=== PATIENT | female | born 2005 | race Caucasian/White ===

== ENCOUNTER 2025-05-14 13:10 | Inpatient (IN) ==
--- NOTE | 2025-05-14 14:40 | Emergency Department Note ---
History of Present Illness General Chief complaint: Neuro Symptoms/Deficit Stated complaint: NUMBNESS/TINGLING IN FACE, ARM, LEG Time Seen by Provider: 05/14/25 13:48 History of Present Illness Maximum Pain Intensity: 6 Patient is a 19-year-old female with past medical history significant for anxiety who presents to the emergency department at the advice of an outside urgent care facility for evaluation of neurologic symptoms. Patient states that for the last 3 weeks, she has had twitching of the left upper eyelid. She tried putting electrolyte solutions in her water without relief. There is no pain associated with it, but she feels like the left face has been numb for a few days. In last couple days she is also noticed numbness and tingling in her right arm and in her right leg. She describes it as feeling like the extremities are heavy. There is a numb tingling session that seems to originate at the right wrist and radiates into the hand/palm and up toward the elbow. She has a similar numbness in the medial right ankle that radiates into the plantar aspect of her foot and up towards her knee. She denies any symptoms in the right upper arm or leg. She feels like they are weak and that she has to concentrate harder to use them. She is right-handed. There is been no associated headache, no lightheadedness, dizziness, nausea, vomiting or neck pain. No fevers or chills. She was seen at an urgent care facility and referred to the ED for evaluation. Home Medications Medication Instructions Recorded Confirmed Type sertraline 50 mg tablet (Zoloft) 50 mg PO DAILY 04/23/24 05/14/25 History Allergies Allergy/AdvReac Type Severity Reaction Status Date / Time No Known Drug Allergies Allergy Intermediate Unverified 05/14/25 12:39 tree nut Allergy Intermediate Unverified 05/14/25 12:39 Past Med/Surg History Problem List (Updated 05/14/25 @ 18:29 by Tai Cartwright) Facial paresthesia (Acute) Weakness of right lower extremity (Acute) Weakness of right upper extremity (Acute) Multiple sclerosis Stroke-like symptoms Medical History Anxiety Surgical History No history of previous surgery Social History Smoking Status: Never smoker Preferred Language: Mohawk current occupational status: student Feels Safe at Home: Yes Review of Systems A total of 10 systems reviewed and were otherwise negative Physical Exam Vital Signs Vital Signs - 24 hr 05/14/25 13:21 Temperature 36.5 C Temperature Source Temporal Artery Scan Pulse Rate 69 Respiratory Rate 16 Respiratory Effort / Characteristics Non-Labored Spontaneous Respiratory Depth Normal Respiratory Pattern Regular Blood Pressure 122/86 Blood Pressure Mean 98 Pulse Oximetry 97 Oxygen Delivery Method Room Air Sepsis Recent Fever Within 48 Hours No Sepsis New/Unexplained Change in Mental Status No Sepsis Action Taken by Nursing No Action Required CONSTITUTIONAL: Pleasant, well-appearing 19-year-old female in no acute distress laying on the gurney. Speech is clear. HEENT: Normocephalic, atraumatic. Pupils equal, round, reactive to light and accommodation. EOMs intact without nystagmus. Intermittent fluttering of the left upper eyelid noted. Tympanic membranes intact, with normal landmarks. External canals are clear. Oral and nasopharynx are clear. Mucous membranes are moist. NECK: Supple, nontender, no lymphadenopathy. Full range of motion. HEART: Regular rate and rhythm. LUNGS: Breath sounds equal and clear to auscultation. SKIN: No lesions or rash, normal skin turgor. EXTREMITIES: No cyanosis, edema, joint tenderness or swelling. No deformity. NEUROLOGICAL: Alert and oriented x4. Cranial nerves 2 through 12 grossly intact. Gait is normal although patient does appear to be hiking the right hip. She is able to tandem walk without difficulty. She can toe and heel rise. Negative Romberg, and pronator drift. Finger to nose intact. Strength in the right upper extremity, including right shoulder, flue dust laborer strength, and elbow flexion/extension 3/5, compared to 5/5 on the left. Strength in the right lower extremity, including hip flexion, knee flexion and extension, and ankle dorsiflexion/plantarflexion 3/5 compared to 5/5 on the left. Biceps, ADLs, patellar and Achilles reflexes 2+ bilaterally. Diminished sensation to light touch over the right forearm, from the elbow distally, and the right lower leg, from the elbow distally. Course Course The patient was seen and assessed as above. External medical records are reviewed. Case reviewed with attending physician, Dr. Lemon, and ED work up agreed upon. IV lock was initiated. Laboratory studies were collected. CT scan of the head and neck was obtained. NIH stroke scale is 0. Diagnostics, as interpreted by me: Laboratory studies: No leukocytosis, anemia, electrolyte imbalance, TIFFANI or transaminitis. Inflammatory markers are not elevated. Coags are normal. TSH is indicative of a euthyroid state. Serum hCG is negative. ECG: Sinus bradycardia with sinus arrhythmia 52 bpm, no acute ischemic changes, no old EKGs available for comparison. Imaging studies: Head CT: No acute intracranial hemorrhage, shift or mass effect. Garibay-white matter differentiation is preserved. No findings to indicate acute dural sinus thrombosis or territorial infarct. Head CTA: Arteries are widely patent with no aneurysm, high-grade stenosis or proximal branch occlusion identified. Dural sinuses are patent. Neck CTA: Vessels are widely. Soft tissue structures unremarkable. All laboratory and diagnostic imaging studies were reviewed with Dr. Lemon, and discussed with the patient at length. She has documented right upper and lower extremity weakness, with associated paresthesia, and reported paresthesia of the left side of her face. Given ongoing neurosymptoms, I did recommend further inpatient care, and she was agreeable. Patient was reviewed with the [facility] hospitalist service, Dr. Mccollum, who will see the patient for further inpatient care. With patient's permission, I did discuss her ED workup with her mother by telephone, she is in route to our facility from [place]. After review of the information above and other included data, I feel the patient requires further inpatient workup. Chronic conditions affecting care: Anxiety Differential diagnosis: meningitis, sinusitis, ICH, SAH, infection, tumor, headache, sinus thrombosis, arterial dissection, demyelinating process, as well as other pathologies. Administered Medications Discontinued Medications Aspirin (Aspirin Chew 324 Mg) 324 mg PO NOW STA Stop: 05/14/25 17:47 Last Admin: 05/14/25 18:05 Dose: 324 mg Documented By: SENA Ioversol (Optiray 320 125ml) 115 ml IV ONCE ONE Stop: 05/14/25 15:25 Last Admin: 05/14/25 15:24 Dose: 115 ml Documented By: RAMYA Medical Decision Making Differential Diagnosis See ED Course. Medical Records Attestation: I reviewed the patient's medical records. Home Medications Current Medication List: was personally reviewed by me Laboratory Data Attestation: I reviewed the patient's lab results. 05/14/25 14:30 05/14/25 14:30 Lab Results 05/14/25 Range/Units 14:30 WBC 6.64 (4.8-10.8) K/ul RBC 5.50 H (4.20-5.40) M/uL Hgb 14.9 (12.0-16.0) g/dL Hct 44.5 (37.0-47.0) % MCV 80.9 (80.0-100.0) fL MCH 27.1 (25.0-34.0) pg MCHC 33.5 (32.0-36.0) g/dL RDW Std Deviation 40.7 (36.4-46.3) fL RDW Coeff of Vesta 13.8 (11.5-14.5) % Plt Count 336 (130-400) K/uL MPV 9.7 (9.4-12.4) fL Immature Gran % (Auto) 0.2 % Neut % (Auto) 55.0 % Lymph % (Auto) 35.2 % Cotton % (Auto) 6.9 % Eos % (Auto) 2.4 % Baso % (Auto) 0.3 % Neut # (Auto) 3.65 (1.40-6.50) K/uL Lymph # (Auto) 2.34 (1.20-3.40) K/uL Cotton # (Auto) 0.46 (0.11-0.59) K/uL Eos # (Auto) 0.16 (0.00-0.50) K/uL Baso # (Auto) 0.02 (0.00-0.20) K/uL Immature Gran # (Auto) 0.01 (0.01-0.20) K/uL ESR 14 (0-20) mm/hr PT 11.4 (9.0-12.0) Seconds INR 1.1 (0.9-1.1) APTT 29 (21-31) Seconds PTT Ratio 1.1 Sodium 138 (136-145) mmol/L Potassium 3.8 (3.5-5.1) mmol/L Chloride 103 (98-107) mmol/L Carbon Dioxide 28 (21-32) mmol/L Anion Gap 7 (3-11) BUN 14 (6-23) mg/dl Creatinine 0.88 (0.6-1.2) mg/dl Est Cr Clr Drug Dosing 91.9 ml/min eGFR 97.03 BUN/Creatinine Ratio 15.9 (10-20) Glucose 93 (70-99(Fasting)) mg/dl Calcium 10.0 (8.6-10.3) mg/dl Magnesium 2.2 (1.7-2.4) mg/dl Total Bilirubin 0.9 (0.2-1.0) mg/dl AST 20 (13-39) U/L ALT 14 (7-52) U/L Alkaline Phosphatase 41 (34-104) U/L C-Reactive Protein < 0.50 (0-0.5) mg/dl Total Protein 8.4 H (6.0-8.3) gm/dl Albumin 4.7 (3.4-5.0) gm/dl Globulin 3.7 (2.5-4.0) gm/dl Albumin/Globulin Ratio 1.3 (0.9-2) TSH 1.226 (0.300-4.500) uIu/ml HCG, Qual Negative (Negative) Imaging Data Attestation: I personally reviewed and interpreted this imaging study as follows: Radiologist's Impression: Head CT 05/14/25 14:12 CT SCAN OF THE BRAIN WITHOUT IV CONTRAST CLINICAL HISTORY: Left facial numbness. Right arm and leg numbness and weakness. COMPARISON STUDY: None. TECHNIQUE: Unenhanced axial CT scan of the brain was performed from the vertex to the skull base. A dose lowering technique was utilized adhering to the principles of ALARA. FINDINGS: Brain parenchyma: No acute intracranial hemorrhage, midline shift or mass effect is present. Garibay-white matter differentiation is preserved. There are no extra- axial fluid collections. There are no findings to suggest acute dural sinus thrombosis or acute territorial infarct. Ventricles, sulci, cisterns: There is no hydrocephalus. The basal cisterns are patent. Calvarium: Unremarkable. Sinuses and mastoids: The visualized paranasal sinuses are clear. The mastoid air cells are well pneumatized. Orbits: The bony orbits are grossly intact. IMPRESSION: No acute intracranial findings. ACT 112: Negative or not required by law. Electronically signed by: Jamshid Cox M.D. 05/14/2025 3:43 PM Head CTA 05/14/25 14:12 CT angio head w con CLINICAL HISTORY: 19 years-old Female with L FACIAL NUMBNESS, R ARM/LEG NUMBNESS/WEAKNESS. Acute stroke like symptoms with left facial numbness COMPARISON STUDY: Head CT same day TECHNIQUE: Following the IV administration of 150 cc of Optiray, CT angiogram of the brain was performed from the skull base to the vertex. Images are reviewed in the axial, sagittal, and coronal planes. 3-D MIPS images are created and assessed. IV contrast was administered without complication. All measurements were obtained according to NASCET criteria. A dose lowering technique was utilized adhering to the principles of ALARA. FINDINGS: CT BRAIN: Dictated separately. CT ANGIOGRAM OF THE BRAIN: The imaged bilateral internal carotid arteries are patent. The bilateral anterior and middle cerebral arteries are also patent. The vertebrobasilar system and posterior cerebral arteries are widely patent. There is no aneurysm, high-grade stenosis, or proximal branch occlusion identified. Dural sinuses appear patent. IMPRESSION: Normal exam. ACT 112: Negative or not required by law. The above report was generated using voice recognition software. It may contain grammatical, syntax or spelling errors. Electronically signed by: Romel Shields M.D. 05/14/2025 3:49 PM Neck CTA 05/14/25 14:12 CT ANGIOGRAM OF THE NECK CLINICAL HISTORY: Left facial numbness. Right arm and leg numbness. COMPARISON STUDY: No prior TECHNIQUE: Following the IV administration of 115 of Optiray 320, CT angiogram of the neck was performed from the aortic arch to the skull base. Images are reviewed in the axial, sagittal, and coronal planes. 3-D MIPS images are created and assessed. IV contrast was administered without complication. All measurements were calculated based on NASCET criteria. A dose lowering technique was utilized adhering to the principles of ALARA. CT DOSE: 930.2 mGy.cm FINDINGS: Thoracic aorta: Visualized portions of the thoracic aorta are normal in caliber. The aortic arch demonstrates standard 3-vessel anatomy. Right carotid arterial system: The right common carotid artery is widely patent, as are the right internal and external carotid arteries. Left carotid arterial system: The left common carotid artery is widely patent, as are the left internal and external carotid arteries. Vertebral arteries: Widely patent bilaterally noting left-sided dominance. Subclavian arteries: Widely patent bilaterally. Intracranial vasculature: The visualized intracranial vessels at the skull base are patent. Jugular veins: Patent bilaterally. Brain parenchyma: The visualized brain parenchyma the skull base is within normal limits. Lung apices: Partially visualized upper lobe lung parenchyma appears clear. Soft tissues: The visualized pharyngeal soft tissues are normal in appearance noting angiographic phase technique. The oropharyngeal airway appears widely patent. The salivary and thyroid glands are normal in appearance. No cervical lymphadenopathy is seen. Skeletal structures: The visualized calvarium at the skull base appears intact. The imaged cervical spine is within normal limits. Sinuses and mastoids: The visualized paranasal sinuses are clear. The mastoid air cells are well pneumatized. IMPRESSION: Unremarkable CT angiogram of the neck. ACT 112: Negative or not required by law. Electronically signed by: Rosales Lyman M.D. 05/14/2025 3:43 PM MDM Narrative See ED Course. Impression & Plan Weakness of right upper extremity, Weakness of right lower extremity, Facial paresthesia Discharge Plan Visit Data Chief Complaint: Neuro Symptoms/Deficit Stated Complaint: NUMBNESS/TINGLING IN FACE, ARM, LEG ED Provider: Kaveh Lemon ED Midlevel Provider: Tai Cartwright Discharge Problem: Weakness of right upper extremity, Weakness of right lower extremity, Facial paresthesia Patient Disposition: Admitted As Inpatient Condition: Fair Forms Stand Alone Forms: [facility] Prescriptions Prescriptions: No Action sertraline [Zoloft] 50 mg tablet 50 mg PO DAILY Referrals Referrals: PCP,NO [Primary Care Provider] -
[2025-05-14 14:48] LABS: Hematocrit (blood only) 44.5 % (37.0-47.0); Hemoglobin 14.9 g/dL (12.0-16.0); Immature Granulocytes # (auto) 0.01 K/uL (0.01-0.20); Immature Granulocytes % (auto) 0.2 %; Mean Corpuscular Hemoglobin 27.1 pg (25.0-34.0); Mean Corpuscular Volume 80.9 fL (80.0-100.0); Platelet Count 336 K/uL (130-400); RDW Standard Deviation 40.7 fL (36.4-46.3); Red Blood Count 5.50 M/uL (4.20-5.40); White Blood Count 6.64 K/ul (4.8-10.8)
[2025-05-14 14:59] LABS: Pregnancy Test, Serum Negative (Negative)
[2025-05-14 15:08] LABS: Alanine Aminotransferase 14 U/L (7-52); Albumin Globulin Ratio 1.3 (0.9-2); Albumin Level 4.7 gm/dl (3.4-5.0); Alkaline Phosphatase 41 U/L (34-104); Anion Gap 7 (3-11); Bilirubin,Total 0.9 mg/dl (0.2-1.0); Blood Urea Nitrogen 14 mg/dl (6-23); Calcium 10.0 mg/dl (8.6-10.3); Carbon Dioxide 28 mmol/L (21-32); Chloride 103 mmol/L (98-107); Creatinine Clr Calc Pharmacy 91.9 ml/min; Globulin 3.7 gm/dl (2.5-4.0); Glucose 93 mg/dl (70-99(Fasting)); Magnesium 2.2 mg/dl (1.7-2.4); Potassium 3.8 mmol/L (3.5-5.1); Sodium 138 mmol/L (136-145); Total Protein 8.4 gm/dl (6.0-8.3)
[2025-05-14 15:22] LABS: Thyroid Stimulating Hormone 1.226 uIu/ml (0.300-4.500)
[2025-05-14] MEDS: OPTIRAY 320 125ml IV ONE (15:24)
[2025-05-14 15:33] LABS: INR 1.1 (0.9-1.1); Partial Thromboplastin Time 29 Seconds (21-31); Prothrombin Time 11.4 Seconds (9.0-12.0)
--- NOTE | 2025-05-14 15:44 | CT Scan Report ---
CT ANGIOGRAM OF THE NECK CLINICAL HISTORY: Left facial numbness. Right arm and leg numbness. COMPARISON STUDY: No prior TECHNIQUE: Following the IV administration of 115 of Optiray 320, CT angiogram of the neck was perfor med from the aortic arch to the skull base. Images are reviewed in the axial, sagittal, and coronal p lanes. 3-D MIPS images are created and assessed. IV contrast was administered without complication. A ll measurements were calculated based on NASCET criteria. A dose lowering technique was utilized adh ering to the principles of ALARA. CT DOSE: 930.2 mGy.cm FINDINGS: Thoracic aorta: Visualized portions of the thoracic aorta are normal in caliber. The aortic arch demo nstrates standard 3-vessel anatomy. Right carotid arterial system: The right common carotid artery is widely patent, as are the right int ernal and external carotid arteries. Left carotid arterial system: The left common carotid artery is widely patent, as are the left international relations professor al and external carotid arteries. Vertebral arteries: Widely patent bilaterally noting left-sided dominance. Subclavian arteries: Widely patent bilaterally. Intracranial vasculature: The visualized intracranial vessels at the skull base are patent. Jugular veins: Patent bilaterally. Brain parenchyma: The visualized brain parenchyma the skull base is within normal limits. Lung apices: Partially visualized upper lobe lung parenchyma appears clear. Soft tissues: The visualized pharyngeal soft tissues are normal in appearance noting angiographic pha se technique. The oropharyngeal airway appears widely patent. The salivary and thyroid glands are nor mal in appearance. No cervical lymphadenopathy is seen. Skeletal structures: The visualized calvarium at the skull base appears intact. The imaged cervical s pine is within normal limits. Sinuses and mastoids: The visualized paranasal sinuses are clear. The mastoid air cells are well pneu matized. IMPRESSION: Unremarkable CT angiogram of the neck. ACT 112: Negative or not required by law. Electronically signed by: Rosales Lyman M.D. 05/14/2025 3:43 PM
--- NOTE | 2025-05-14 15:44 | CT Scan Report ---
CT SCAN OF THE BRAIN WITHOUT IV CONTRAST CLINICAL HISTORY: Left facial numbness. Right arm and leg numbness and weakness. COMPARISON STUDY: None. TECHNIQUE: Unenhanced axial CT scan of the brain was performed from the vertex to the skull base. A dose lowering technique was utilized adhering to the principles of ALARA. FINDINGS: Brain parenchyma: No acute intracranial hemorrhage, midline shift or mass effect is present. Garibay-whi te matter differentiation is preserved. There are no extra-axial fluid collections. There are no find ings to suggest acute dural sinus thrombosis or acute territorial infarct. Ventricles, sulci, cisterns: There is no hydrocephalus. The basal cisterns are patent. Calvarium: Unremarkable. Sinuses and mastoids: The visualized paranasal sinuses are clear. The mastoid air cells are well pneu matized. Orbits: The bony orbits are grossly intact. IMPRESSION: No acute intracranial findings. ACT 112: Negative or not required by law. Electronically signed by: Jamshid Cox M.D. 05/14/2025 3:43 PM
--- NOTE | 2025-05-14 15:51 | CT Scan Report ---
CT angio head w con CLINICAL HISTORY: 19 years-old Female with L FACIAL NUMBNESS, R ARM/LEG NUMBNESS/WEAKNESS. Acute s troke like symptoms with left facial numbness COMPARISON STUDY: Head CT same day TECHNIQUE: Following the IV administration of 150 cc of Optiray, CT angiogram of the brain was perfor med from the skull base to the vertex. Images are reviewed in the axial, sagittal, and coronal planes . 3-D MIPS images are created and assessed. IV contrast was administered without complication. All me asurements were obtained according to NASCET criteria. A dose lowering technique was utilized adherin g to the principles of ALARA. FINDINGS: CT BRAIN: Dictated separately. CT ANGIOGRAM OF THE BRAIN: The imaged bilateral internal carotid arteries are patent. The bilateral anterior and middle cerebral arteries are also patent. The vertebrobasilar system and posterior cerebral arteries are widely noguera nt. There is no aneurysm, high-grade stenosis, or proximal branch occlusion identified. Dural sinuses appear patent. IMPRESSION: Normal exam. ACT 112: Negative or not required by law. The above report was generated using voice recognition software. It may contain grammatical, syntax o r spelling errors. Electronically signed by: Romel Shields M.D. 05/14/2025 3:49 PM
[2025-05-14] MEDS: ASPIRIN CHEW 324 MG PO STA (18:05)
--- NOTE | 2025-05-14 18:26 | Neurology Consultation ---
Date of Consultation May 14, 2025 Assessment & Plan (1) Stroke-like symptoms: (2) Multiple sclerosis: Telehealth Consultation Telehealth Information Telehealth Information: I performed this visit using a real-time telehealth connection between my location and the patients originating location ([facility]). After connecting through interactive tele-video, patient was identified by name and date of and/or wristband check.Patient (or authorized healthcare parts sales representative) was informed that this was a telemedicine visit and it was being conducted confidentially over secure lines. My office door was closed and no one else was present in the room with me.Patient (or authorized healthcare parts sales representative) provided consent to proceed with the visit, expressed an understanding of privacy and security of the telemedicine visit, and gave permission to have a hospital parts sales representative in the room in order to assist with the visit and to conduct portions of the visit, as needed. I informed the patient (or authorized healthcare parts sales representative) that I reviewed their record and presented the opportunity for them to ask any questions regarding the visit today. The patient agreed to participate. History of Present Illness Requesting Physician: Dr. Jose J Mccollum Attending Physician: Dr. Jose J Mccollum Allergies Allergy/AdvReac Type Severity Reaction Status Date / Time No Known Drug Allergies Allergy Intermediate Unverified 05/14/25 12:39 tree nut Allergy Intermediate Unverified 05/14/25 12:39 Home Medications Medication Instructions Recorded Confirmed Type sertraline 50 mg tablet (Zoloft) 50 mg PO DAILY 04/23/24 05/14/25 History Patient History Medical History Anxiety Surgical History No history of previous surgery Social History Smoking Status: Never smoker Preferred Language: Slovak current occupational status: student Feels Safe at Home: Yes Review of Systems Constitutional symptoms, eyes, ears, nose, throat, cardiovascular, respiratory, gastrointestinal, genitourinary, musculoskeletal, endocrine, hematologic, and psychiatric review of systems are negative about the chief complaint, except as detailed in the present illness. Results & Data Vital Signs (Past 12 Hours) Vital Signs Temp Pulse Resp BP Pulse Ox O2 Del Method 05/14/25 13:21 36.5 C 69 16 122/86 97 Room Air Laboratory Results Laboratory Results - last 24 hr 05/14/25 14:30 WBC 6.64 RBC 5.50 H Hgb 14.9 Hct 44.5 MCV 80.9 MCH 27.1 MCHC 33.5 RDW Std Deviation 40.7 RDW Coeff of Vesta 13.8 Plt Count 336 MPV 9.7 Immature Gran % (Auto) 0.2 Neut % (Auto) 55.0 Lymph % (Auto) 35.2 [place] % (Auto) 6.9 Eos % (Auto) 2.4 Baso % (Auto) 0.3 Neut # (Auto) 3.65 Lymph # (Auto) 2.34 [place] # (Auto) 0.46 Eos # (Auto) 0.16 Baso # (Auto) 0.02 Immature Gran # (Auto) 0.01 ESR 14 PT 11.4 INR 1.1 APTT 29 PTT Ratio 1.1 Sodium 138 Potassium 3.8 Chloride 103 Carbon Dioxide 28 Anion Gap 7 BUN 14 Creatinine 0.88 Est Cr Clr Drug Dosing 91.9 eGFR 97.03 BUN/Creatinine Ratio 15.9 Glucose 93 Calcium 10.0 Magnesium 2.2 Total Bilirubin 0.9 AST 20 ALT 14 Alkaline Phosphatase 41 C-Reactive Protein < 0.50 Total Protein 8.4 H Albumin 4.7 Globulin 3.7 Albumin/Globulin Ratio 1.3 TSH 1.226 HCG, Qual Negative Diagnostic Findings Head CT 05/14/25 14:12 CT SCAN OF THE BRAIN WITHOUT IV CONTRAST CLINICAL HISTORY: Left facial numbness. Right arm and leg numbness and weakness. COMPARISON STUDY: None. TECHNIQUE: Unenhanced axial CT scan of the brain was performed from the vertex to the skull base. A dose lowering technique was utilized adhering to the principles of ALARA. FINDINGS: Brain parenchyma: No acute intracranial hemorrhage, midline shift or mass effect is present. Garibay-white matter differentiation is preserved. There are no extra- axial fluid collections. There are no findings to suggest acute dural sinus thrombosis or acute territorial infarct. Ventricles, sulci, cisterns: There is no hydrocephalus. The basal cisterns are patent. Calvarium: Unremarkable. Sinuses and mastoids: The visualized paranasal sinuses are clear. The mastoid air cells are well pneumatized. Orbits: The bony orbits are grossly intact. IMPRESSION: No acute intracranial findings. ACT 112: Negative or not required by law. Electronically signed by: Jamshid Cox M.D. 05/14/2025 3:43 PM Head CTA 05/14/25 14:12 CT angio head w con CLINICAL HISTORY: 19 years-old Female with L FACIAL NUMBNESS, R ARM/LEG NUMBNESS/WEAKNESS. Acute stroke like symptoms with left facial numbness COMPARISON STUDY: Head CT same day TECHNIQUE: Following the IV administration of 150 cc of Optiray, CT angiogram of the brain was performed from the skull base to the vertex. Images are reviewed in the axial, sagittal, and coronal planes. 3-D MIPS images are created and assessed. IV contrast was administered without complication. All measurements were obtained according to NASCET criteria. A dose lowering technique was utilized adhering to the principles of ALARA. FINDINGS: CT BRAIN: Dictated separately. CT ANGIOGRAM OF THE BRAIN: The imaged bilateral internal carotid arteries are patent. The bilateral anterior and middle cerebral arteries are also patent. The vertebrobasilar system and posterior cerebral arteries are widely patent. There is no aneurysm, high-grade stenosis, or proximal branch occlusion identified. Dural sinuses appear patent. IMPRESSION: Normal exam. ACT 112: Negative or not required by law. The above report was generated using voice recognition software. It may contain grammatical, syntax or spelling errors. Electronically signed by: Romel Shields M.D. 05/14/2025 3:49 PM Neck CTA 05/14/25 14:12 CT ANGIOGRAM OF THE NECK CLINICAL HISTORY: Left facial numbness. Right arm and leg numbness. COMPARISON STUDY: No prior TECHNIQUE: Following the IV administration of 115 of Optiray 320, CT angiogram of the neck was performed from the aortic arch to the skull base. Images are reviewed in the axial, sagittal, and coronal planes. 3-D MIPS images are created and assessed. IV contrast was administered without complication. All measurements were calculated based on NASCET criteria. A dose lowering technique was utilized adhering to the principles of ALARA. CT DOSE: 930.2 mGy.cm FINDINGS: Thoracic aorta: Visualized portions of the thoracic aorta are normal in caliber. The aortic arch demonstrates standard 3-vessel anatomy. Right carotid arterial system: The right common carotid artery is widely patent, as are the right internal and external carotid arteries. Left carotid arterial system: The left common carotid artery is widely patent, as are the left internal and external carotid arteries. Vertebral arteries: Widely patent bilaterally noting left-sided dominance. Subclavian arteries: Widely patent bilaterally. Intracranial vasculature: The visualized intracranial vessels at the skull base are patent. Jugular veins: Patent bilaterally. Brain parenchyma: The visualized brain parenchyma the skull base is within normal limits. Lung apices: Partially visualized upper lobe lung parenchyma appears clear. Soft tissues: The visualized pharyngeal soft tissues are normal in appearance noting angiographic phase technique. The oropharyngeal airway appears widely patent. The salivary and thyroid glands are normal in appearance. No cervical lymphadenopathy is seen. Skeletal structures: The visualized calvarium at the skull base appears intact. The imaged cervical spine is within normal limits. Sinuses and mastoids: The visualized paranasal sinuses are clear. The mastoid air cells are well pneumatized. IMPRESSION: Unremarkable CT angiogram of the neck. ACT 112: Negative or not required by law. Electronically signed by: Rosales Lyman M.D. 05/14/2025 3:43 PM Medications Administered Home Medications Medication Instructions Recorded Confirmed Last Taken sertraline 50 mg tablet (Zoloft) 50 mg PO DAILY 04/23/24 05/14/25 Unknown
--- NOTE | 2025-05-14 19:03 | Communication Note ---
Date of Service: May 14, 2025 Phone consultation: Consulting provider: Dr. Jose J Mccollum 19-year-old female with medical history significant for anxiety presented to the emergency department on 05/14/2025 because of multiple neurological symptoms and deficits. The patient first went to the urgent care facility and was sent to the hospital for further evaluation. She had twitching of the left upper eyelid for the last 3 weeks. She tried putting electrolyte solution in her water but there was no relief. She also developed left facial numbness which lasted for a few days and since the last few days she also noted numbness and tingling in her right arm and right leg. She also feels her right side of the body is heavy. The patient also describes a tingling and paresthesias which starts from the right wrist and radiates to her hand and palm. She also has at times numbness of her right ankle and foot. She denies any focal weakness but feel weak and has to concentrate to use her arm and leg on the right side in the emergency room, head CT was done which was negative for acute intracranial pathology. CT angiogram of the head and neck did not show hemodynamically significant stenosis. EKG showed sinus bradycardia with sinus arrhythmia 52 bpm. Labs were essentially unremarkable unremarkable and serum hCG was negative. There was initially a concern about stroke so she was given full dose aspirin. MS seems high on the differential since she has multiple neurological symptoms which occurred over time and also her age. Neurology was consulted regarding further recommendations. Assessment and plan: 19-year-old with multiple neurological symptoms over. Of time raises concern more about multiple sclerosis. Acute CVA is lower on the differential. Agree with full dose aspirin for secondary stroke prevention Consider giving 1 dose of Solu-Medrol 1 g IV now since symptoms seem concerning for MS. Will proceed with MRI of the brain with and without contrast and MRI of the cervical spine with and without contrast for further evaluation to see if there is any presence of actve demyelinating lesions. Check hypercoagulable/thrombosis panel since history of strokelike symptoms at early age Need Lumbar puncture and please send CSF for: CSF Cell count & differential, Gram stain, Culture & Sensitivity, Protein, Glucose, Cytology (Non-computer game designer cytology) Infectious: If CSF has increased WBCs, please order: Meningitis/encephalitis panel, VDRL, West Nile Virus PCR, EBV PCR CSF: Oligoclonal Banding with SPEP, JOSE level, Aquaporin 4-Ab (blood/CSF), IgG, IgM, and IgG index. Serum: Myelin Oligodendrocyte Glycoprotein (MOG)-Ab (Miscellaneous order to [facility]), c-ANCA, p-ANCA, STEPHIE panel PT/OT/speech Continue home medications Continue telemetry to monitor for arrhythmias Monitor blood pressure and blood glucose DVT prophylaxis Continue medical management per primary team Further recommendations depend on the results of the testing. Formal neurology consult in a.m. Plan discussed in detail with the admitting hospitalist Dr. Mccollum Time Spent (min) 20 minutes Comment Total time includes peer to peer discussion , chart review, , note preparation *Disclaimer: This note was generated using [employer] dictation software. Any typographical errors are unintentional and attributed to errors in voice recognition. If there are any areas of the note that do not make sense, please contact me for clarification.
[2025-05-14] MEDS: GADOBUTROL 65ML VIAL IV ONE (19:24)
[2025-05-14] MEDS: methylPREDNISolone 1,000 MG in NSS 250 ML IV ONE (19:42)
--- NOTE | 2025-05-14 19:43 | Magnetic Resonance Report ---
Technique: Multiple T1 and T2-weighted magnetic resonance images were obtained of the brain without gadolinium contrast Findings: There is no sign of acute or old infarction with normal-appearing diffusion weighted images. No definite focus of demyelination is seen. No definite mass lesion is seen on this noncontrast study. There is no intracranial hemorrhage or other fluid collection. No midline shift or other form of herniation is seen. There is no hydrocephalus. Normal flow-voids are seen within the arteries of the [id number]. The orbits and paranasal sinuses appear normal. The mastoid air cells appear clear. Impression: Unremarkable noncontrast MRI of the brain Electronically signed by Jayjay Borden 05-14-2025 7:42 PM
--- NOTE | 2025-05-14 19:47 | History & Physical Report ---
Date of Service May 14, 2025 Assessment & Plan (1) Facial paresthesia: (2) Weakness of right lower extremity: (3) Weakness of right upper extremity: (4) Stroke-like symptoms: (5) Anxiety: Plan # Subacute polyneuropathy # Left facial, right upper extremity and right lower extremity decrease in sensation #Concern for acute MS - Subacute, progressive over about 3 weeks, positive Lhermitte sign - Admit PCU, close stroke protocol, consult to neurology. Discussed with Dr. Eli of [facility] teleneurology, symptoms very consistent with acute MS - Stat MRI brain and cervical spine with and without contrast - 324 mg aspirin, 1 g loading dose of Solu-Medrol - Seizure and fall precautions #Anxiety depression - Continue sertraline #Skin lesions - Several months ago, healed, will review for review this morning - Monitor for recurrence #FEN - Regular diet, NS at 80 cc/h through the night #CODE STATUS - Full code per her wishes History of Present Illness Chief Complaint: Right side numbness Primary Care Provider: NO PCP 19-year-old female generally healthy presents to the emergency department after a 3-1-week history of progressive neurologic symptoms. Patient states she has no prior history of similar. Generally healthy takes sertraline for depression/anxiety. About 3 weeks ago noticed some twitching of her left eyelid which has been persistent and almost now constant. Shortly after the twitching started she had some numbness that she noticed around the left side of her forehead and the left side of her face surrounding the eye. Symptoms would come and go but never completely resolved. Over the last week she first noticed some numbness and decreased sensation throughout the right arm. A few days later she noticed some slight weakness and decreased sensation of the right leg. She was somewhat concerned the symptoms are worsening. She went to class today she felt very unsteady one of her friends thought she looked as though she was going to pass out so she advised her to come to urgent care. Urgent care referred her to the emergency department for evaluation. Initial evaluation in the emergency department showed largely normal electrolytes. Normal CT imaging. Initial stroke workup was negative. She was referred for admission for ongoing evaluation, neurology consultation and further treatment and evaluation. Allergies Allergy/AdvReac Type Severity Reaction Status Date / Time No Known Drug Allergies Allergy Intermediate Unverified 05/14/25 12:39 tree nut Allergy Intermediate Unverified 05/14/25 12:39 Home Medications Medication Instructions Recorded Confirmed Type sertraline 50 mg tablet (Zoloft) 50 mg PO DAILY 04/23/24 05/14/25 History Past Med/Surg History Problem List (Updated 05/14/25 @ 18:29 by Tai Cartwright) Facial paresthesia (Acute) Weakness of right lower extremity (Acute) Weakness of right upper extremity (Acute) Multiple sclerosis Stroke-like symptoms Medical History Anxiety Surgical History No history of previous surgery Social History Smoking Status: Never smoker Preferred Language: Nicaraguan current occupational status: student Feels Safe at Home: Yes Review of Systems Review of Systems: Aside from that noted in HPI she only has a few skin lesions that she noticed on the inside of her thigh several months ago but those have largely resolved only 1 she thinks may have scarred. Otherwise 12pt review of system negative Neurologic: Patient does report a lightninglike pain in the right upper side of her spine and neck over the same timeframe Physical Exam Physical Exam: General: Alert and oriented, no apparent distress HEENT: Normocephalic, atraumatic, sclera clear and anicteric Neck: Trachea midline, no adenopathy Cardiovascular: Regular rate and rhythm, no murmurs rubs or gallops Respiratory: Clear to auscultation bilaterally Abdomen: Nontender nondistended Skin: No rash or discoloration on limited examination Neurologic: Noted intermittent spastic twitching of the left upper eyelid, EOMI with no aferrent or eferrent defects, subjective decrease in sensation area of the forehead above the left eye to just below the left eye extending to the zygomatic arch, no ptosis or facial droop, cranial nerves II through XII otherwise grossly intact. Subjective decrease in sensation of the entire right upper extremity and right lower extremity. Strength 5/5 to the upper extremities. Reflexes 2+/4 at the patella bilaterally, Babinski was negative. There was very slight heel drift in the right lower extremity, no pronator dri ft. No dysmetria or dysarthria noted. Results & Data Results & Data Vital Signs (Past 12 Hours) Vital Signs Temp Pulse Resp BP Pulse Ox O2 Del Method 05/14/25 13:21 36.5 C 69 16 122/86 97 Room Air Laboratory Results 05/14/25 14:30 WBC 6.64 RBC 5.50 H Hgb 14.9 Hct 44.5 MCV 80.9 MCH 27.1 MCHC 33.5 RDW Std Deviation 40.7 RDW Coeff of Vesta 13.8 Plt Count 336 MPV 9.7 Immature Gran % (Auto) 0.2 Neut % (Auto) 55.0 Lymph % (Auto) 35.2 [place] % (Auto) 6.9 Eos % (Auto) 2.4 Baso % (Auto) 0.3 Neut # (Auto) 3.65 Lymph # (Auto) 2.34 [place] # (Auto) 0.46 Eos # (Auto) 0.16 Baso # (Auto) 0.02 Immature Gran # (Auto) 0.01 ESR 14 PT 11.4 INR 1.1 APTT 29 PTT Ratio 1.1 Sodium 138 Potassium 3.8 Chloride 103 Carbon Dioxide 28 Anion Gap 7 BUN 14 Creatinine 0.88 Est Cr Clr Drug Dosing 91.9 eGFR 97.03 BUN/Creatinine Ratio 15.9 Glucose 93 Calcium 10.0 Magnesium 2.2 Total Bilirubin 0.9 AST 20 ALT 14 Alkaline Phosphatase 41 C-Reactive Protein < 0.50 Total Protein 8.4 H Albumin 4.7 Globulin 3.7 Albumin/Globulin Ratio 1.3 TSH 1.226 HCG, Qual Negative Diagnostic Findings Head CT 05/14/25 14:12 CT SCAN OF THE BRAIN WITHOUT IV CONTRAST CLINICAL HISTORY: Left facial numbness. Right arm and leg numbness and weakness. COMPARISON STUDY: None. TECHNIQUE: Unenhanced axial CT scan of the brain was performed from the vertex to the skull base. A dose lowering technique was utilized adhering to the principles of ALARA. FINDINGS: Brain parenchyma: No acute intracranial hemorrhage, midline shift or mass effect is present. Garibay-white matter differentiation is preserved. There are no extra- axial fluid collections. There are no findings to suggest acute dural sinus thrombosis or acute territorial infarct. Ventricles, sulci, cisterns: There is no hydrocephalus. The basal cisterns are patent. Calvarium: Unremarkable. Sinuses and mastoids: The visualized paranasal sinuses are clear. The mastoid air cells are well pneumatized. Orbits: The bony orbits are grossly intact. IMPRESSION: No acute intracranial findings. ACT 112: Negative or not required by law. Electronically signed by: Jamshid Cox M.D. 05/14/2025 3:43 PM Head CTA 05/14/25 14:12 CT angio head w con CLINICAL HISTORY: 19 years-old Female with L FACIAL NUMBNESS, R ARM/LEG NUMBNESS/WEAKNESS. Acute stroke like symptoms with left facial numbness COMPARISON STUDY: Head CT same day TECHNIQUE: Following the IV administration of 150 cc of Optiray, CT angiogram of the brain was performed from the skull base to the vertex. Images are reviewed in the axial, sagittal, and coronal planes. 3-D MIPS images are created and assessed. IV contrast was administered without complication. All measurements were obtained according to NASCET criteria. A dose lowering technique was utilized adhering to the principles of ALARA. FINDINGS: CT BRAIN: Dictated separately. CT ANGIOGRAM OF THE BRAIN: The imaged bilateral internal carotid arteries are patent. The bilateral anterior and middle cerebral arteries are also patent. The vertebrobasilar system and posterior cerebral arteries are widely patent. There is no aneurysm, high-grade stenosis, or proximal branch occlusion identified. Dural sinuses appear patent. IMPRESSION: Normal exam. ACT 112: Negative or not required by law. The above report was generated using voice recognition software. It may contain grammatical, syntax or spelling errors. Electronically signed by: Romel Shields M.D. 05/14/2025 3:49 PM Neck CTA 05/14/25 14:12 CT ANGIOGRAM OF THE NECK CLINICAL HISTORY: Left facial numbness. Right arm and leg numbness. COMPARISON STUDY: No prior TECHNIQUE: Following the IV administration of 115 of Optiray 320, CT angiogram o f the neck was performed from the aortic arch to the skull base. Images are reviewed in the axial, sagittal, and coronal planes. 3-D MIPS images are created and assessed. IV contrast was administered without complication. All measurements were calculated based on NASCET criteria. A dose lowering technique was utilized adhering to the principles of ALARA. CT DOSE: 930.2 mGy.cm FINDINGS: Thoracic aorta: Visualized portions of the thoracic aorta are normal in caliber. The aortic arch demonstrates standard 3-vessel anatomy. Right carotid arterial system: The right common carotid artery is widely patent, as are the right internal and external carotid arteries. Left carotid arterial system: The left common carotid artery is widely patent, as are the left internal and external carotid arteries. Vertebral arteries: Widely patent bilaterally noting left-sided dominance. Subclavian arteries: Widely patent bilaterally. Intracranial vasculature: The visualized intracranial vessels at the skull base are patent. Jugular veins: Patent bilaterally. Brain parenchyma: The visualized brain parenchyma the skull base is within normal limits. Lung apices: Partially visualized upper lobe lung parenchyma appears clear. Soft tissues: The visualized pharyngeal soft tissues are normal in appearance noting angiographic phase technique. The oropharyngeal airway appears widely patent. The salivary and thyroid glands are normal in appearance. No cervical lymphadenopathy is seen. Skeletal structures: The visualized calvarium at the skull base appears intact. The imaged cervical spine is within normal limits. Sinuses and mastoids: The visualized paranasal sinuses are clear. The mastoid air cells are well pneumatized. IMPRESSION: Unremarkable CT angiogram of the neck. ACT 112: Negative or not required by law. Electronically signed by: Rosales Lyman M.D. 05/14/2025 3:43 PM Code Status & VTE Plan VTE Prophylaxis Plan VTE Prophylaxis will be ordered: Yes PG Care Time/CCT Total # of Minutes Spent Total Time Spent with Patient: Total time spent is greater than 50% in coordination of care (as documented) at patient's floor/unit and/or counseling patient: Coding Level of Care Code 98685 INT INP/OBS CARE 3/75MIN Diagnoses Facial paresthesia R20.2 Weakness of right lower extremity R29.898 Weakness of right upper extremity R29.898 Stroke-like symptoms R29.90 Anxiety F41.9
--- NOTE | 2025-05-14 20:02 | Magnetic Resonance Report ---
MR cervical spine with and without contrast History: Facial numbness Comparison: No prior Technique: Sagittal T1-weighted, sagittal T2-weighted, sagittal STIR, sagittal diffusion weighted, axial T2-weighted, and axial T2* gradient echo images of the cervical spine were obtained without intravenous contrast. T1-weighted postcontrast images performed. Findings: The cervical vertebrae are normally aligned. There is no disc height narrowing at any level. There is normal signal within and normal contour of the cervical spinal cord. The findings on a level by level basis are as follows: C2-3: No spinal canal or neural foraminal stenosis. C3-4: No spinal canal or neural foraminal stenosis C4-5: No spinal canal or neural foraminal stenosis. C5-6: No spinal canal or neural foraminal stenosis. C6-7: No spinal canal or neural foraminal stenosis. C7-T1: No spinal canal or neural foraminal stenosis. No abnormality of the paraspinous soft tissues. No abnormal enhancement or mass. Impression: Normal MRI of the cervical spine with and without IV contrast Electronically signed by Hong Kimball 05-14-2025 8:02 PM
[2025-05-14] MEDS ORDERED: PHARMACIST DISCHARGE MED REC CONSULT PRN (20:21)
[2025-05-14] MEDS ORDERED: ONDANSETRON INJ 2 MG/ML 2 ML VIAL IV PRN (20:21)
[2025-05-14] MEDS: SODIUM CHLORIDE 0.9% 1,000 ML IV SCH (20:28)
[2025-05-14] MEDS: SERTRALINE HCL 50 MG TABLET PO SCH (22:15)
[2025-05-14 23:32] LABS: Appearance Urine Clear (Clear); Glucose Urine UA Negative (Negative)
[2025-05-15 06:25] LABS: Hematocrit (blood only) 39.3 % (37.0-47.0); Hemoglobin 13.3 g/dL (12.0-16.0); Immature Granulocytes # (auto) 0.04 K/uL (0.01-0.20); Immature Granulocytes % (auto) 0.4 %; Mean Corpuscular Hemoglobin 27.1 pg (25.0-34.0); Mean Corpuscular Volume 80.2 fL (80.0-100.0); Platelet Count 318 K/uL (130-400); RDW Standard Deviation 39.7 fL (36.4-46.3); Red Blood Count 4.90 M/uL (4.20-5.40); White Blood Count 9.60 K/ul (4.8-10.8)
[2025-05-15 06:58] LABS: Anion Gap 10.0 (3-11); Blood Urea Nitrogen 12.0 mg/dl (6-23); Calcium 9.3 mg/dl (8.6-10.3); Carbon Dioxide 24.0 mmol/L (21-32); Chloride 106.0 mmol/L (98-107); Cholesterol 205.0 mg/dl (0-200); Creatinine Clr Calc Pharmacy 98.6 ml/min; Glucose 147.0 mg/dl (70-99(Fasting)); HDL Cholesterol 75.0 mg/dl; Potassium 4.2 mmol/L (3.5-5.1); Sodium 140.0 mmol/L (136-145); Triglycerides 37.0 mg/dl (0-150)
--- NOTE | 2025-05-15 08:07 | Neurology Consultation ---
Date of Consultation May 15, 2025 Assessment & Plan (1) Multiple sclerosis: (2) Stroke-like symptoms: Plan 19-year-old female presented with 3-day history of right eyelid twitching with numbness on the left side of the face around the left eye, progressive weakness of the right upper and lower extremity associated with numbness and difficulty with ambulation. Patient initially presented to the urgent care and was advised to come to the emergency room for further evaluation. In the emergency room, she was given full dose aspirin for secondary stroke prevention and also 1 g of Solu-Medrol IV with concern about multiple sclerosis Acute CVA has been ruled out with negative MRI of the brain and TIA has been ruled out since symptoms are more than 24 hours. MRI of the brain and MRI of the cervical spine did not show any presence of demyelinating lesions active or inactive. However, her MS can occur with negative imaging but rare. Will image the rest of the spine Head CT reviewed which was negative for acute intracranial pathology CT angiogram of the head and neck did not show dynamically significant stenosis EKG showed sinus bradycardia Consider MRI of the thoracic and cervical spine with and without contrast Will also proceed with lumbar puncture In the meantime, continue IV Solu-Medrol 1 g every 24 hours for 2 more days. Today is day 2 of 3 Regular insulin sliding scale for steroid-induced hyperglycemia PPI for steroid-induced GERD Neurochecks every 4 hours Need Lumbar puncture and please send CSF for: CSF Cell count & differential, Gram stain, Culture & Sensitivity, Protein, Glucose, Cytology (Non-birdcage assembler cytology) Infectious: If CSF has increased WBCs, please order: Meningitis/encephalitis panel, VDRL, West Nile Virus PCR, EBV PCR CSF: Oligoclonal Banding with SPEP, JOSE level, Aquaporin 4-Ab (blood/CSF), IgG, IgM, and IgG index. Serum: Myelin Oligodendrocyte Glycoprotein (MOG)-Ab (Miscellaneous order to [facility]), c-ANCA, p-ANCA, STEPHIE panel PT/OT/speech Continue home medications Continue telemetry to monitor for arrhythmias Monitor blood pressure and blood glucose DVT prophylaxis Continue medical management per primary team The results of the imaging were discussed in detail with the patient. Patient was made aware that multiple sclerosis without positive imaging is rare but can occur. The importance of lumbar puncture and CSF fluid analysis was also discussed with the patient. She was also made aware of the results take several days that she has to establish care with a neurologist to go over the results and perform further testing if the results were inconclusive Plan discussed in detail with the patient, and the nursing staff Plan also communicated with the primary attending Dr. Mccollum Spent time 60 minutes Comment Total time includes patient contact, chart review, counseling, note preparation *Disclaimer: This note was generated using [email or web address] dictation software. Any typographical errors are unintentional and attributed to errors in voice recognition. If there are any areas of the note that do not make sense, please contact me for clarification. Telehealth Consultation Telehealth Information Telehealth Information: I performed this visit using a real-time telehealth connection between my location and the patients originating location ([facility]). After connecting through interactive tele-video, patient was identified by name and date of and/or wristband check.Patient (or authorized healthcare door to door sales representative) was informed that this was a telemedicine visit and it was being conducted confidentially over secure lines. My office door was closed and no one else was present in the room with me.Patient (or authorized healthcare door to door sales representative) provided consent to proceed with the visit, expressed an understanding of privacy and security of the telemedicine visit, and gave permission to have a hospital door to door sales representative in the room in order to assist with the visit and to conduct portions of the visit, as needed. I informed the patient (or authorized healthcare door to door sales representative) that I reviewed their record and presented the opportunity for them to ask any questions regarding the visit today. The patient agreed to participate. History of Present Illness Reason for Consultation: Right sided weakness and numbness,left eye twitching, and ambulatory dysfunction R/O Multiple Sclerosis Requesting Physician: Jose J Mccollum MD Attending Physician: Jose J Mccollum MD History of Present Illness 19-year-old female who is a sophomore at [employer] presented to the emergency department because of 3-week history of progressive neurological symptoms. Patient does have a history significant for depression and anxiety and is on sertraline. The patient denies any head trauma or tick bite. 3 weeks ago she experienced twitching in her left eyelid which was persistent and then she noted numbness on the left side of her face mainly around the eye. The symptoms did not resolve but then she also started noticing decreased appetite associated with numbness in the right upper and lower extremity in addition to right sided weakness and difficulty with ambulation. The symptoms progressed since the last 3 weeks. On 05/14/2025, the patient friends noted that she was unsteady and advised her to come to the urgent care for further evaluation. She denies any family history of MS or history of similar episodes in the past. She went to the urgent care and was advised to come to the emergency room for further evaluation. In the emergency room, vitals were stable. Head CT was done which was negative for acute intracranial pathology. CT angiogram of the head and neck did not show hemodynamically significant stenosis. EKG showed sinus bradycardia with sinus arrhythmia. She was admitted for workup for MS. MRI of the brain was done on 05/14/2025 in the emergency room with and without contrast which did not show any acute intracranial pathology or evidence of demyelinating lesions. Cervical spine MRI was also unremarkable and did not show any evidence of demyelinating lesions. The patient symptoms are still p ersistent at the time of the rounds and complain of twitching of the left eyelid associated with numbness on the left side of the face mainly around the eye and also weakness and numbness of the right upper and lower extremity. The patient has history of abnormal bowel movements which alternates between diarrhea and constipation about 8 times a day for which she was scheduled for further testing for irritable bowel syndrome in June 2025. The patient denies any nausea, vomiting, change headache, or problems with speech or swallowing Allergies Allergy/AdvReac Type Severity Reaction Status Date / Time No Known Drug Allergies Allergy Intermediate Unverified 05/14/25 12:39 tree nut Allergy Intermediate Unverified 05/14/25 12:39 Home Medications Medication Instructions Recorded Confirmed Type sertraline 50 mg tablet (Zoloft) 50 mg PO DAILY 04/23/24 05/14/25 History Patient History Medical History Anxiety Surgical History No history of previous surgery Social History Smoking Status: Unknown if ever smoked Hx Alcohol Use: Yes Hx Substance Use: No Preferred Language: Polish Communication Ability: Effective General Supervisor Required: No Beliefs That Will Affect Care: None Current Living Situation: Other Current Living Situation Comment: roommates at [employer] current occupational status: student Other Information That Helps Us Care for You: No Feels Safe at Home: Yes Safety Concerns: Feels Safe At This Time Assistive Devices: Contacts Review of Systems Constitutional symptoms, eyes, ears, nose, throat, cardiovascular, respiratory, gastrointestinal, genitourinary, musculoskeletal, endocrine, hematologic, and psychiatric review of systems are negative about the chief complaint, except as detailed in the present illness. Physical Exam Neuro Exam Mentation and Language Alert and oriented to person, place, time and situation. There is no apparent deficit of comprehensionfluent speech without word-finding difficulty or dysarthria. The affect appears appropriate. Cranial Nerves CN 11-X11 intact. Except cranial nerve Vdiminished sensation to touch in the V1, V2, distribution on the left Motor There is appropriate bulk throughout. Tone is normal. There is no resting tremor or other extraneous movements. Strength is graded 5/5 throughout the upper and lower extremity on the left. Right hemiparesis 4/5 Sensation Intact to light touch on the left. Diminished sensation to touch in the right upper and lower extremity Muscle Stretch Reflexes Coordination There is no dysmetria with finger nose finger Gait and Station Deferred due to patient safety reasons. Results & Data Vital Signs (Past 12 Hours) Vital Signs Temp Pulse Pulse Resp BP BP Pulse Ox 05/15/25 07:07 36.4 C L 44 L 20 96/60 L 98 05/15/25 02:54 36.5 C 53 L 16 105/57 L 96 05/14/25 23:49 51 L 05/14/25 22:57 36.6 C 64 16 106/64 97 05/14/25 21:05 63 05/14/25 20:29 69 16 128/89 98 05/14/25 20:20 36.6 C 57 L 16 109/68 97 O2 Del Method 05/15/25 07:07 Room Air 05/15/25 02:54 Room Air 05/14/25 23:49 05/14/25 22:57 Room Air 05/14/25 21:05 05/14/25 20:29 Room Air 05/14/25 20:20 Room Air Laboratory Results Laboratory Results - last 24 hr 05/14/25 05/14/25 05/15/25 14:30 22:57 05:45 WBC 6.64 9.60 RBC 5.50 H 4.90 Hgb 14.9 13.3 Hct 44.5 39.3 MCV 80.9 80.2 MCH 27.1 27.1 MCHC 33.5 33.8 RDW Std Deviation 40.7 39.7 RDW Coeff of Vesta 13.8 13.5 Plt Count 336 318 MPV 9.7 9.9 Immature Gran % (Auto) 0.2 0.4 Neut % (Auto) 55.0 86.5 Lymph % (Auto) 35.2 12.6 [place] % (Auto) 6.9 0.4 Eos % (Auto) 2.4 0.0 Baso % (Auto) 0.3 0.1 Neut # (Auto) 3.65 8.30 H Lymph # (Auto) 2.34 1.21 [place] # (Auto) 0.46 0.04 L Eos # (Auto) 0.16 0.00 Baso # (Auto) 0.02 0.01 Immature Gran # (Auto) 0.01 0.04 ESR 14 PT 11.4 INR 1.1 APTT 29 PTT Ratio 1.1 Sodium 138 140 Potassium 3.8 4.2 Chloride 103 106 Carbon Dioxide 28 24 Anion Gap 7 10 BUN 14 12 Creatinine 0.88 0.82 Est Cr Clr Drug Dosing 91.9 98.6 eGFR 97.03 105.61 BUN/Creatinine Ratio 15.9 14.6 Glucose 93 147 H Estimat Average Glucose Pending Hemoglobin A1c Pending Calcium 10.0 9.3 Magnesium 2.2 Total Bilirubin 0.9 AST 20 ALT 14 Alkaline Phosphatase 41 C-Reactive Protein < 0.50 Total Protein 8.4 H Albumin 4.7 Globulin 3.7 Albumin/Globulin Ratio 1.3 Triglycerides 37 Cholesterol 205 H LDL Cholesterol, Calc 123 VLDL Cholesterol, Calc 7 HDL Cholesterol 75 Cholesterol/HDL Ratio 2.7 TSH 1.226 HCG, Qual Negative Urine Color Yellow Urine Appearance Clear Urine pH 8.5 H Ur Specific [place] 1.030 Urine Protein Negative Urine Glucose (UA) Negative Urine Ketones Negative Urine Blood Negative Urine Nitrite Negative Urine Bilirubin Negative Urine Urobilinogen Negative Ur Leukocyte Esterase Negative Urine Comment Diagnostic Findings Head CT 05/14/25 14:12 CT SCAN OF THE BRAIN WITHOUT IV CONTRAST CLINICAL HISTORY: Left facial numbness. Right arm and leg numbness and weakness. COMPARISON STUDY: None. TECHNIQUE: Unenhanced axial CT scan of the brain was performed from the vertex to the skull base. A dose lowering technique was utilized adhering to the principles of ALARA. FINDINGS: Brain parenchyma: No acute intracranial hemorrhage, midline shift or mass effect is present. Garibay-white matter differentiation is preserved. There are no extra- axial fluid collections. There are no findings to suggest acute dural sinus thrombosis or acute territorial infarct. Ventricles, sulci, cisterns: There is no hydrocephalus. The basal cisterns are patent. Calvarium: Unremarkable. Sinuses and mastoids: The visualized paranasal sinuses are clear. The mastoid air cells are well pneumatized. Orbits: The bony orbits are grossly intact. IMPRESSION: No acute intracranial findings. ACT 112: Negative or not required by law. Electronically signed by: Jamshdi Cox M.D. 05/14/2025 3:43 PM Head CTA 05/14/25 14:12 CT angio head w con CLINICAL HISTORY: 19 years-old Female with L FACIAL NUMBNESS, R ARM/LEG NUMBNESS/WEAKNESS. Acute stroke like symptoms with left facial numbness COMPARISON STUDY: Head CT same day TECHNIQUE: Following the IV administration of 150 cc of Optiray, CT angiogram of the brain was performed from the skull base to the vertex. Images are reviewed in the axial, sagittal, and coronal planes. 3-D MIPS images are created and assessed. IV contrast was administered without complication. All measurements were obtained according to NASCET criteria. A dose lowering technique was utilized adhering to the principles of ALARA. FINDINGS: CT BRAIN: Dictated separately. CT ANGIOGRAM OF THE BRAIN: The imaged bilateral internal carotid arteries are patent. The bilateral anterior and middle cerebral arteries are also patent. The vertebrobasilar system and posterior cerebral arteries are widely patent. There is no aneurysm, high-grade stenosis, or proximal branch occlusion identified. Dural sinuses appear patent. IMPRESSION: Normal exam. ACT 112: Negative or not required by law. The above report was generated using voice recognition software. It may contain grammatical, syntax or spelling errors. Electronically signed by: Romel Shields M.D. 05/14/2025 3:49 PM Neck CTA 05/14/25 14:12 CT ANGIOGRAM OF THE NECK CLINICAL HISTORY: Left facial numbness. Right arm and leg numbness. COMPARISON STUDY: No prior TECHNIQUE: Following the IV administration of 115 of Optiray 320, CT angiogram of the neck was performed from the aortic arch to the skull base. Images are reviewed in the axial, sagittal, and coronal planes. 3-D MIPS images are created and assessed. IV contrast was administered without complication. All measurements were calculated based on NASCET criteria. A dose lowering technique was utilized adhering to the principles of ALARA. CT DOSE: 930.2 mGy.cm FINDINGS: Thoracic aorta: Visualized portions of the thoracic aorta are normal in caliber. The aortic arch demonstrates standard 3-vessel anatomy. Right carotid arterial system: The right common carotid artery is widely patent, as are the right internal and external carotid arteries. Left carotid arterial system: The left common carotid artery is widely patent, as are the left internal and external carotid arteries. Vertebral arteries: Widely patent bilaterally noting left-sided dominance. Subclavian arteries: Widely patent bilaterally. Intracranial vasculature: The visualized intracranial vessels at the skull base are patent. Jugular veins: Patent bilaterally. Brain parenchyma: The visualized brain parenchyma the skull base is within normal limits. Lung apices: Partially visualized upper lobe lung parenchyma appears clear. Soft tissues: The visualized pharyngeal soft tissues are normal in appearance noting angiographic phase technique. The oropharyngeal airway appears widely patent. The salivary and thyroid glands are normal in appearance. No cervical lymphadenopathy is seen. Skeletal structures: The visualized calvarium at the skull base appears intact. The imaged cervical spine is within normal limits. Sinuses and mastoids: The visualized paranasal sinuses are clear. The mastoid air cells are well pneumatized. IMPRESSION: Unremarkable CT angiogram of the neck. ACT 112: Negative or not required by law. Electronically signed by: Rosales Lyman M.D. 05/14/2025 3:43 PM Brain MRI 05/14/25 17:51 Technique: Multiple T1 and T2-weighted magnetic resonance images were obtained of the brain without gadolinium contrast Findings: There is no sign of acute or old infarction with normal-appearing diffusion weighted images. No definite focus of demyelination is seen. No definite mass lesion is seen on this noncontrast study. There is no intracranial hemorrhage or other fluid collection. No midline shift or other form of herniation is seen. There is no hydrocephalus. Normal flow-voids are seen within the arteries of the [id number]. The orbits and paranasal sinuses appear normal. The mastoid air cells appear clear. Impression: Unremarkable noncontrast MRI of the brain Electronically signed by Jayjay Borden 05-14-2025 7:42 PM Cervical Spine MRI 05/14/25 17:51 MR cervical spine with and without contrast History: Facial numbness Comparison: No prior Technique: Sagittal T1-weighted, sagittal T2-weighted, sagittal STIR, sagittal diffusion weighted, axial T2-weighted, and axial T2* gradient echo images of the cervical spine were obtained without intravenous contrast. T1-weighted postcontrast images performed. Findings: The cervical vertebrae are normally aligned. There is no disc height narrowing at any level. There is normal signal within and normal contour of the cervical spinal cord. The findings on a level by level basis are as follows: C2-3: No spinal canal or neural foraminal stenosis. C3-4: No spinal canal or neural foraminal stenosis C4-5: No spinal canal or neural foraminal stenosis. C5-6: No spinal canal or neural foraminal stenosis. C6-7: No spinal canal or neural foraminal stenosis. C7-T1: No spinal canal or neural foraminal stenosis. No abnormality of the paraspinous soft tissues. No abnormal enhancement or mass. Impression: Normal MRI of the cervical spine with and without IV contrast Electronically signed by Hong Kimball 05-14-2025 8:02 PM Medications Administered Home Medications Medication Instructions Recorded Confirmed Last Taken sertraline 50 mg tablet (Zoloft) 50 mg PO DAILY 04/23/24 05/14/25 Unknown Active Medications Generic Name Dose Route Start Last Admin Trade Name Freq PRN Reason Stop Dose Admin Sodium Chloride 1,000 mls @ 80 mls/hr 05/14/25 20:30 05/14/25 20:28 Nss IV 05/17/25 20:29 80 mls/hr .[id number] CATHY Administration Sertraline HCl 50 mg 05/14/25 21:15 05/14/25 22:15 Sertraline Hcl 50 Mg Tablet PO 06/13/25 21:14 50 mg 1700 CATHY Administration
[2025-05-15 08:08] LABS: Hemoglobin A1C 5.4 % (4.5-5.6)
--- NOTE | 2025-05-15 08:46 | Hospitalist Progress Note ---
"Date of Service May 15, 2025 Assessment & Plan (1) Facial paresthesia: (2) Weakness of right lower extremity: (3) Weakness of right upper extremity: (4) Stroke-like symptoms: (5) Anxiety: Plan Pt is a 19 y/o F w/ PMHx significant for travel to [facility] in December where she hiked in the [place] and went swimming. # Subacute polyneuropathy # Left facial, right upper extremity and right lower extremity decrease in sensation | L arm repetitive involuntary movements #Concern for acute MS -Head CT & CTA 05/14: Without acute intracranial findings -Neck CTA 05/14: Unremarkable for acute findings -Brain MRI 05/14: Unremarkable, no abnormal lesions or masses seen within the brain -Cervical Spine MRI 05/14: Unremarkable: no abnormalities of the paraspinous soft tissues seen, no abnormal enhancement or masses -Lumbar and Thoracic Spine MRI 05/15: Without abnormalities, no abnormal enhancement see, no disc herniation or central canal stenosis present -Repeat Head CT 05/15 without any acute or abnormal findings. -Subacute, progressive over about 3 weeks, positive Lhermitte sign -Neurology Consulted: Recommended Lumbar and Thoracic MRI and Lumbar Puncture Additionally recommended pt receive Ativan with new onset of L arm repetitive involuntary movement with concern for seizure-like activity in addition to STAT Head CT Also recommended transfer to tertiary care facility, this was declined by [facility], pt will be re-evaluated in AM -Infectious Disease Consulted: to see patient in AM, agreed with LP testing -Stat MRI brain and cervical spine with and without contrast -1000mg Solumedrol -Seizure and fall precautions -Neuro check Q4H #Anxiety depression - Continue sertraline #Skin lesions - Several months ago, healed -Monitor for recurrence #FEN -Regular diet, NS at 80 cc/h through the night VTE Proph: SCDs Dispo: PCU; closely followed by Neuro Admission and Anticipated Discharge Date Admission Date: May 14, 2025 Subjective Pt was laying in bed today in NAD, mother at bedside. Pt notes that she feels slightly better today than she did yesterday. She notes that this AM she had a Lt sided H/A and notes that she recently took some Tylenol to help. She notes that she continues to feel weak. Pt states that she discussed LP with neuro and understands why it is needed and agreeable to the procedure. Pt otherwise denies cough, congestion, shortness of breath, chest pain, palpitations, appetite changes, abdominal pain or discomfort, nausea vomiting and diarrhea. Pt was additionally seen later on with my Attending, Dr Jose J Mccollum, present at bedside. Pt noted that she developed and Lt sided arm-movement that was difficult to control. this was then discussed with neurology. Patient was then given 1 g of Ativan followed by an additional gram of Ativan 15 minutes later to help with uncontrollable movements. Patient was then taken down for a stat CT at the recommendation of the neurologist. Neurologist additionally recommended transfer to tertiary care facility, upon further discussion with [facility] they did not feel it was appropriate to transfer patient at this time. Patient will remain 1 more night and be reevaluated for tertiary care center needs in the morning. Telemetry: Sinus 40s-60s overnight into AM Review of Systems Review of Systems: All systems reviewed & are unremarkable except as noted in Subjective Physical Exam Physical Exam: General: Pt is a 19 y/o WD/WN F in NAD in bed. VS: reviewed, unremarkable Skin: Warm and dry; no lesions or ulcerations Respiratory: CTA bilat, no adventitious sounds noted. Chest expansion is full and symmetrical Cardio: RRR no murmurs Abdomen: Round, normoactive BS x4, nontender to palpation MSK: FROM of extremities, no deformities Extremities: no edema; Pt with notable R-sided weakness, with a strength of +3 Neuro: A&Ox4, cooperative; Tic-like movement present on L side of body Results & Data Results & Data Vital Signs (Past 12 Hours) Vital Signs Temp Pulse Pulse Resp BP Pulse Ox O2 Del Method 05/15/25 07:07 97.5 F L 44 L 20 96/60 L 98 Room Air 05/15/25 02:54 97.7 F 53 L 16 105/57 L 96 Room Air 05/14/25 23:49 51 L 05/14/25 22:57 97.9 F 64 16 106/64 97 Room Air 05/14/25 21:05 63 Laboratory Results Reviewed: CBC, CMP, UA, TSH, HCG, Lipid Panel Diagnostic Findings Reviewed: CT head, thoracic spine MRI, lumbar spine MRI, lumbar puncture PG Care Time/CCT Total # of Minutes Spent Total Time Spent with Patient: Total time spent is greater than 50% in coordination of care (as documented) at patient's floor/unit and/or counseling patient: A total of 150 minutes was spent between direct patient care, review of imaging + labs + chart review, coordination of patient care, and documentation. Coding Level of Care Code 04932 SUB INP/OBS CARE 3/50MIN Diagnoses Facial paresthesia R20.2 Weakness of right lower extremity R29.898 Weakness of right upper extremity R29.898 Stroke-like symptoms R29.90 Anxiety F41.9"
[2025-05-15] MEDS ORDERED: SERTRALINE HCL 50 MG TABLET PO SCH (09:00)
[2025-05-15] MEDS: ACETAMINOPHEN 325 MG TAB PO PRN (11:01)
[2025-05-15] MEDS: GADOBUTROL 65ML VIAL IV ONE (12:54)
--- NOTE | 2025-05-15 12:55 | Infectious Disease Consult ---
Date of Consultation May 15, 2025 Consultation Information Consultation was provided via telemedicine using two-way real-time interactive telecommunication between the patient and the telemedicine provider. For the duration of the visit, the provider was performing the assessment from a different facility than the patient. This includesuse of bluetooth stethoscope forauscultationperformed by the telepresenter that the telemedicine provider can hear if described in the physical exam. Planting Material Carrier contact information: Please call [facility] [phone]. (Phone Number For Physician Use Only) After establishing a telemedicine visit, patient was: Patient was verified with two unique identifiers, Patient/authorized rep acknowledged consent and understanding and Gave permission to continue telehealth session Time Spent with Patient: Initial => 55 min History of Present Illness Reason for Consultation: Neurologic symptoms Attending Physician: Jose J Mccollum MD Allergies Allergy/AdvReac Type Severity Reaction Status Date / Time No Known Drug Allergies Allergy Intermediate Unverified 05/14/25 12:39 tree nut Allergy Intermediate Unverified 05/14/25 12:39 Home Medications Medication Instructions Recorded Confirmed Type sertraline 50 mg tablet (Zoloft) 50 mg PO DAILY 04/23/24 05/14/25 History Patient History Medical History Anxiety Surgical History No history of previous surgery Social History Smoking Status: Unknown if ever smoked Hx Alcohol Use: Yes Hx Substance Use: No Preferred Language: Dutch Communication Ability: Effective Dress Fitter Required: No Beliefs That Will Affect Care: None Current Living Situation: Other Current Living Situation Comment: roommates at [facility] current occupational status: student Other Information That Helps Us Care for You: No Feels Safe at Home: Yes Safety Concerns: Feels Safe At This Time Assistive Devices: None Results & Data Vital Signs (Past 12 Hours) Vital Signs Temp Pulse Pulse Resp BP Pulse Ox O2 Del Method 05/15/25 11:34 36.5 C 58 L 21 105/63 99 Room Air 05/15/25 08:00 43 L 05/15/25 07:07 36.4 C L 44 L 20 96/60 L 98 Room Air 05/15/25 02:54 36.5 C 53 L 16 105/57 L 96 Room Air
--- NOTE | 2025-05-15 13:22 | Magnetic Resonance Report ---
MRI OF THE LUMBAR SPINE WITH AND WITHOUT CONTRAST CLINICAL HISTORY: Extremity weakness and numbness. Evaluate for multiple sclerosis. COMPARISON STUDY: No previous studies for comparison. TECHNIQUE: Utilizing a 1.5 Edith magnet and dedicated coil, multiplanar, multiecho imaging of the conor ar spine was performed before and after uneventful IV administration of 5.6 mL of Gadavist. FINDINGS: For purposes of numbering on this exam, the L5-S1 disc space is assigned to axial image 23 of 25. Ali gnment of the lumbar spine is anatomic. Vertebral body heights are maintained. There is no marrow pilar ma or marrow replacement. No intracanalicular mass or fluid collection is present. No signal abnormal ity is identified within visualized portions the lower cord. There is no abnormal enhancement within the lumbar canal. L1-2: The central canal and neural foramen are patent. L2-3: The central canal and neural foramen are patent. L3-4: The central canal and neural foramen are patent. L4-5: The central canal and neural foramen are patent. L5-S1: The central canal and neural foramen are patent. IMPRESSION: Unremarkable MRI of the lumbar spine. ACT 112: Negative or not required by law. Electronically signed by: Jamshid Cox M.D. 05/15/2025 1:20 PM
--- NOTE | 2025-05-15 14:19 | Fluoroscopy Report ---
LUMBAR PUNCTURE CLINICAL HISTORY: New onset weakness; paresthesias PROCEDURE: Procedure and risks were explained. Informed consent was obtained. A final timeout was com pleted. The patient was placed prone on the fluoroscopic exam table. The lower lumbar region was prep ped and draped in sterile fashion. 1% lidocaine was utilized for skin anesthesia. Utilizing fluoroscopic guidance, a 22-gauge Sprotte spinal needle was advanced into the intrathecal s pace at the L3-4 disc space level. Fluoroscopic spot images were obtained. Opening pressure was measu red at 26.5 cm H20. Approximately 10 mL of clear CSF was removed and sent to the lab for analysis. Th e needle was removed and Band-Aid applied. The patient tolerated the procedure well. Vital signs will be monitored postprocedure. Fluoroscopy time 5 seconds. Study dosed is 2.86 mGy. IMPRESSION: Lumbar puncture as above. Performed, dictated, and signed by Ricki Armendariz PA-C; to be co-signed by Dr. Jamshid Cox. Electronically signed by: Jamshid Cox M.D. 05/15/2025 2:31 PM
--- NOTE | 2025-05-15 14:46 | Infectious Disease Consult ---
Date of Consultation May 15, 2025 Assessment & Plan (1) Facial paresthesia: (2) Weakness of right lower extremity: (3) Weakness of right upper extremity: Plan Problems: #L sided facial numbness #RUE and RLE numbness, weakness #Elevated opening pressure Micro: 05/15 CSF cx: pending Abx: None 19 yo F with history of depression/anxiety who presented on 05/14 for evaluation of neurologic symptoms. Pt reports that she has had twitching of the L upper eyelid for the last 3 weeks. L side of her forehead and L side of her face around her eye has felt numb for a few days. Symptoms would come and go but did not fully resolve. In the last week, also noticed numbness in her R arm, and a few days later, slight weakness and decreased sensation in her R leg. She feels as if her extremities are heavy. On presentation, pt was afebrile, VSS. Labs showed unremarkable CBC and CMP, normal ESR, UA negative. CT head, CTA head/neck normal. Neurology was concerned for multiple sclerosis, recommended starting Solumedrol, and lumbar puncture. MRI brain and entirel spine unremarkable. On exam, neurology noted diminished sensation to touch in V1, V2 distribution on the L, R hemiparesis 4/5, diminished sensation to touch in R upper and lower extremities. LP performed 05/15, showing opening pressure 26.5, CSF WBC 1, protein 32.1, glucose 106, meningitis/encephalitis PCR panel negative. Unable to see patient by video today as she was in MRI when telepresenter was available. Per my discussion with primary team, pt has not had overt fevers, but reported perhaps some sweats. She traveled to [facility] and [facility] in late December, and was reportedly hiking through the jungle and went scuba diving. Per neurology note, pt denies tick bite. Discussion: With normal CSF WBC, infections such as bacterial/viral, syphilis, Crypto seem less likely. Recommendations: - Ordered HIV screen, Lyme screen - Follow-up CSF culture/gram stain, however bacterial/fungal infection unlikely given normal CSF WBC count Will continue to follow Consultation Information This patient recommendation is based on a telemedicine consult request which was completed asynchronously through chart review and information provided by the primary physician. The patient was not seen or examined today. The evaluation is consultative in nature and all patient care and treatment decisions can either be accepted or rejected by the patient's primary hospital-based treating physician using their own independent medical judgment for their patient. Lo[facility] Worker Head contact information: Please call [facility] . (Phone Number For Physician Use Only) Time Spent Reviewing Chart: 31+ minutes History of Present Illness Reason for Consultation: Neurologic symptoms, evaluate for infectious etiology Attending Physician: Jose J Mccollum MD History of Present Illness 19 yo F with history of depression/anxiety who presented on 05/14 for evaluation of neurologic symptoms. Pt reports that she has had twitching of the L upper eyelid for the last 3 weeks. L side of her forehead and L side of her face around her eye has felt numb for a few days. Symptoms would come and go but did not fully resolve. In the last week, also noticed numbness in her R arm, and a few days later, slight weakness and decreased sensation in her R leg. She feels as if her extremities are heavy. On presentation, pt was afebrile, VSS. Labs showed unremarkable CBC and CMP, normal ESR, UA negative. CT head, CTA head/neck normal. Neurology was concerned for multiple sclerosis, recommended starting Solumedrol, and lumbar puncture. MRI brain and entirel spine unremarkable. On exam, neurology noted diminished sensation to touch in V1, V2 distribution on the L, R hemiparesis 4/5, diminished sensation to touch in R upper and lower extremities. LP performed 05/15, showing opening pressure 26.5, CSF WBC 1, protein 32.1, glucose 106, meningitis/encephalitis PCR panel negative. Unable to see patient by video today as she was in MRI when telepresenter was available. Per my discussion with primary team, pt has not had overt fevers, but reported perhaps some sweats. She traveled to [facility] and [facility] in late December, and was reportedly hiking through the jungle and went scuba diving. Per neurology note, pt denies tick bite. Allergies Allergy/AdvReac Type Severity Reaction Status Date / Time No Known Drug Allergies Allergy Intermediate Unverified 05/14/25 12:39 tree nut Allergy Intermediate Unverified 05/14/25 12:39 Home Medications Medication Instructions Recorded Confirmed Type sertraline 50 mg tablet (Zoloft) 50 mg PO DAILY 04/23/24 05/14/25 History Patient History Medical History Anxiety Surgical History No history of previous surgery Social History Smoking Status: Unknown if ever smoked Hx Alcohol Use: Yes Hx Substance Use: No Preferred Language: Azeri Communication Ability: Effective Tobacco Dipper Required: No Beliefs That Will Affect Care: None Current Living Situation: Other Current Living Situation Comment: roommates at [facility] current occupational status: student Other Information That Helps Us Care for You: No Feels Safe at Home: Yes Safety Concerns: Feels Safe At This Time Assistive Devices: None Results & Data Vital Signs (Past 12 Hours) Vital Signs Temp Pulse Pulse Resp BP Pulse Ox O2 Del Method 05/15/25 11:34 36.5 C 58 L 21 105/63 99 Room Air 05/15/25 08:00 43 L 05/15/25 07:07 36.4 C L 44 L 20 96/60 L 98 Room Air 05/15/25 02:54 36.5 C 53 L 16 105/57 L 96 Room Air Laboratory Results Short CBC 05/14/25 05/15/25 Range/Units 14:30 05:45 WBC 6.64 9.60 (4.8-10.8) K/ul Hgb 14.9 13.3 (12.0-16.0) g/dL Hct 44.5 39.3 (37.0-47.0) % Plt Count 336 318 (130-400) K/uL BMP 05/14/25 05/15/25 14:30 05:45 Sodium 138 140 Potassium 3.8 4.2 Chloride 103 106 Carbon Dioxide 28 24 BUN 14 12 Creatinine 0.88 0.82 Glucose 93 147 H Calcium 10.0 9.3 Liver Function 05/14/25 Range/Units 14:30 Total Bilirubin 0.9 (0.2-1.0) mg/dl AST 20 (13-39) U/L ALT 14 (7-52) U/L Alkaline Phosphatase 41 (34-104) U/L Albumin 4.7 (3.4-5.0) gm/dl Urine 05/14/25 Range/Units 22:57 Urine Color Yellow Urine Appearance Clear (Clear) Urine pH 8.5 H (4.5-7.5) Ur Specific [place] 1.030 (1.000-1.030) Urine Protein Negative (Negative) Urine Glucose (UA) Negative (Negative) Diagnostic Findings Head CT 05/14/25 14:12 CT SCAN OF THE BRAIN WITHOUT IV CONTRAST CLINICAL HISTORY: Left facial numbness. Right arm and leg numbness and weakness. COMPARISON STUDY: None. TECHNIQUE: Unenhanced axial CT scan of the brain was performed from the vertex to the skull base. A dose lowering technique was utilized adhering to the principles of ALARA. FINDINGS: Brain parenchyma: No acute intracranial hemorrhage, midline shift or mass effect is present. Garibay-white matter differentiation is preserved. There are no extra- axial fluid collections. There are no findings to suggest acute dural sinus thrombosis or acute territorial infarct. Ventricles, sulci, cisterns: There is no hydrocephalus. The basal cisterns are patent. Calvarium: Unremarkable. Sinuses and mastoids: The visualized paranasal sinuses are clear. The mastoid air cells are well pneumatized. Orbits: The bony orbits are grossly intact. IMPRESSION: No acute intracranial findings. ACT 112: Negative or not required by law. Electronically signed by: Jamshid Cox M.D. 05/14/2025 3:43 PM Head CTA 05/14/25 14:12 CT angio head w con CLINICAL HISTORY: 19 years-old Female with L FACIAL NUMBNESS, R ARM/LEG NUMBNESS/WEAKNESS. Acute stroke like symptoms with left facial numbness COMPARISON STUDY: Head CT same day TECHNIQUE: Following the IV administration of 150 cc of Optiray, CT angiogram of the brain was performed from the skull base to the vertex. Images are reviewed in the axial, sagittal, and coronal planes. 3-D MIPS images are created and assessed. IV contrast was administered without complication. All measurements were obtained according to NASCET criteria. A dose lowering technique was utilized adhering to the principles of ALARA. FINDINGS: CT BRAIN: Dictated separately. CT ANGIOGRAM OF THE BRAIN: The imaged bilateral internal carotid arteries are patent. The bilateral anterior and middle cerebral arteries are also patent. The vertebrobasilar system and posterior cerebral arteries are widely patent. There is no aneurysm, high-grade stenosis, or proximal branch occlusion identified. Dural sinuses appear patent. IMPRESSION: Normal exam. ACT 112: Negative or not required by law. The above report was generated using voice recognition software. It may contain grammatical, syntax or spelling errors. Electronically signed by: Romel Shields M.D. 05/14/2025 3:49 PM Neck CTA 05/14/25 14:12 CT ANGIOGRAM OF THE NECK CLINICAL HISTORY: Left facial numbness. Right arm and leg numbness. COMPARISON STUDY: No prior TECHNIQUE: Following the IV administration of 115 of Optiray 320, CT angiogram of the neck was performed from the aortic arch to the skull base. Images are reviewed in the axial, sagittal, and coronal planes. 3-D MIPS images are created and assessed. IV contrast was administered without complication. All measurements were calculated based on NASCET criteria. A dose lowering technique was utilized adhering to the principles of ALARA. CT DOSE: 930.2 mGy.cm FINDINGS: Thoracic aorta: Visualized portions of the thoracic aorta are normal in caliber. The aortic arch demonstrates standard 3-vessel anatomy. Right carotid arterial system: The right common carotid artery is widely patent, as are the right internal and external carotid arteries. Left carotid arterial system: The left common carotid artery is widely patent, as are the left internal and external carotid arteries. Vertebral arteries: Widely patent bilaterally noting left-sided dominance. Subclavian arteries: Widely patent bilaterally. Intracranial vasculature: The visualized intracranial vessels at the skull base are patent. Jugular veins: Patent bilaterally. Brain parenchyma: The visualized brain parenchyma the skull base is within normal limits. Lung apices: Partially visualized upper lobe lung parenchyma appears clear. Soft tissues: The visualized pharyngeal soft tissues are normal in appearance noting angiographic phase technique. The oropharyngeal airway appears widely patent. The salivary and thyroid glands are normal in appearance. No cervical lymphadenopathy is seen. Skeletal structures: The visualized calvarium at the skull base appears intact. The imaged cervical spine is within normal limits. Sinuses and mastoids: The visualized paranasal sinuses are clear. The mastoid air cells are well pneumatized. IMPRESSION: Unremarkable CT angiogram of the neck. ACT 112: Negative or not required by law. Electronically signed by: Rosales Lyman M.D. 05/14/2025 3:43 PM Brain MRI 05/14/25 17:51 Technique: Multiple T1 and T2-weighted magnetic resonance images were obtained of the brain without gadolinium contrast Findings: There is no sign of acute or old infarction with normal-appearing diffusion weighted images. No definite focus of demyelination is seen. No definite mass lesion is seen on this noncontrast study. There is no intracranial hemorrhage or other fluid collection. No midline shift or other form of herniation is seen. There is no hydrocephalus. Normal flow-voids are seen within the arteries of the [id number]. The orbits and paranasal sinuses appear normal. The mastoid air cells appear clear. Impression: Unremarkable noncontrast MRI of the brain Electronically signed by Jayjay Borden 05-14-2025 7:42 PM Cervical Spine MRI 05/14/25 17:51 MR cervical spine with and without contrast History: Facial numbness Comparison: No prior Technique: Sagittal T1-weighted, sagittal T2-weighted, sagittal STIR, sagittal diffusion weighted, axial T2-weighted, and axial T2* gradient echo images of the cervical spine were obtained without intravenous contrast. T1-weighted postcontrast images performed. Findings: The cervical vertebrae are normally aligned. There is no disc height narrowing at any level. There is normal signal within and normal contour of the cervical spinal cord. The findings on a level by level basis are as follows: C2-3: No spinal canal or neural foraminal stenosis. C3-4: No spinal canal or neural foraminal stenosis C4-5: No spinal canal or neural foraminal stenosis. C5-6: No spinal canal or neural foraminal stenosis. C6-7: No spinal canal or neural foraminal stenosis. C7-T1: No spinal canal or neural foraminal stenosis. No abnormality of the paraspinous soft tissues. No abnormal enhancement or mass. Impression: Normal MRI of the cervical spine with and without IV contrast Electronically signed by Hong Kimball 05-14-2025 8:02 PM Lumbar Spine MRI 05/15/25 11:42 MRI OF THE LUMBAR SPINE WITH AND WITHOUT CONTRAST CLINICAL HISTORY: Extremity weakness and numbness. Evaluate for multiple sclerosis. COMPARISON STUDY: No previous studies for comparison. TECHNIQUE: Utilizing a 1.5 Edith magnet and dedicated coil, multiplanar, multiecho imaging of the lumbar spine was performed before and after uneventful IV administration of 5.6 mL of Gadavist. FINDINGS: For purposes of numbering on this exam, the L5-S1 disc space is assigned to axial image 23 of 25. Alignment of the lumbar spine is anatomic. Vertebral body heights are maintained. There is no marrow edema or marrow replacement. No intracanalicular mass or fluid collection is present. No signal abnormality is identified within visualized portions the lower cord. There is no abnormal enhancement within the lumbar canal. L1-2: The central canal and neural foramen are patent. L2-3: The central canal and neural foramen are patent. L3-4: The central canal and neural foramen are patent. L4-5: The central canal and neural foramen are patent. L5-S1: The central canal and neural foramen are patent. IMPRESSION: Unremarkable MRI of the lumbar spine. ACT 112: Negative or not required by law. Electronically signed by: aJmshid Cox M.D. 05/15/2025 1:20 PM Lumbar Puncture 05/15/25 12:06 LUMBAR PUNCTURE CLINICAL HISTORY: New onset weakness; paresthesias PROCEDURE: Procedure and risks were explained. Informed consent was obtained. A final timeout was completed. The patient was placed prone on the fluoroscopic exam table. The lower lumbar region was prepped and draped in sterile fashion. 1% lidocaine was utilized for skin anesthesia. Utilizing fluoroscopic guidance, a 22-gauge Sprotte spinal needle was advanced into the intrathecal space at the L3-4 disc space level. Fluoroscopic spot images were obtained. Opening pressure was measured at 26.5 cm H20. Approximately 10 mL of clear CSF was removed and sent to the lab for analysis. The needle was removed and Band-Aid applied. The patient tolerated the procedure well. Vital signs will be monitored postprocedure. Fluoroscopy time 5 seconds. Study dosed is 2.86 mGy. IMPRESSION: Lumbar puncture as above. Performed, dictated, and signed by Ricki Armendariz PA-C; to be co-signed by Dr. Jamshid Cox. Electronically signed by: Jamshid Cox M.D. 05/15/2025 2:31 PM Medications Administered Current Inpatient Medications Acetaminophen (Acetaminophen 325 Mg Tab) 650 mg PO Q4H PRN PRN Reason: Pain or Fever Stop: 06/13/25 20:20 Last Admin: 05/15/25 11:01 Dose: 650 mg Acetazolamide (Acetazolamide 250 Mg Tab) 250 mg PO BID CATHY Stop: 06/14/25 20:59 Sodium Chloride (Nss) 1,000 mls @ 80 mls/hr IV .[id number] CATHY Stop: 05/17/25 20:29 Last Admin: 05/15/25 09:20 Dose: 80 mls/hr Magnesium Hydroxide (Magnesium Hydroxide Susp 30 Ml Udc) 30 ml PO Q12H PRN PRN Reason: Constipation Stop: 06/13/25 20:20 Ondansetron HCl (Ondansetron Inj 2 Mg/Ml 2 Ml Vial) 4 mg IV Q6H PRN PRN Reason: Nausea Stop: 06/13/25 20:20 Pantoprazole Sodium (Pantoprazole 40 Mg Tab) 40 mg PO BID [facility] Stop: 06/14/25 20:59 Sertraline HCl (Sertraline Hcl 50 Mg Tablet) 50 mg PO 1700 [facility] Stop: 06/13/25 21:14 Last Admin: 05/14/25 22:15 Dose: 50 mg
[2025-05-15 14:48] LABS: CSF Count Tube # 3; CSF Xanthrochromic No xanthochromia; Red Blood Cell CSF Manual 1 (0); White Blood Cell CSF Manual 1 (0-5)
[2025-05-15] MEDS: FAMOTIDINE 10 MG TABLET PO ONE (15:05)
[2025-05-15 15:18] LABS: Glucose 137 mg/dl (70-99(Fasting))
--- NOTE | 2025-05-15 15:26 | Magnetic Resonance Report ---
MRI OF THE THORACIC SPINE COMBO CLINICAL HISTORY: Right arm and leg weakness/numbness. COMPARISON STUDY: No priors. TECHNIQUE: MRI of the thoracic spine was performed utilizing various T1 and T2-weighted sequences in the axial and sagittal planes. Contrast-enhanced sequences are acquired following the IV administrati on of 5.6 cc of gadavist. FINDINGS: Vertebral body height and alignment are maintained throughout the thoracic spine. Normal ma rrow signal intensity is preserved throughout the visualized bony structures. No destructive bony les ion is seen. The spinous processes appear intact. The intervertebral discs are normal in height and s ignal intensity. There is no disc herniation or central canal stenosis. No significant neural foramin al stenosis is seen throughout the thoracic region. The thoracic spinal cord is normal in morphology and signal intensity. The conus medullaris terminates at the level of L1. No abnormal postcontrast en hancement is seen. Slit-like prominence of the central canal of the spinal cord is incidentally noted in the upper thoracic region. The paraspinous soft tissues are within normal limits. No enhancing ma ss lesion is identified. No pleural effusion is seen. The lung parenchyma is grossly unremarkable but not well-evaluated by MRI. The visualized posterior ribs are normal as imaged. IMPRESSION: 1. There is no disc herniation, central canal stenosis, or neural foraminal narrowing seen throughout the thoracic spine. 2. The thoracic spinal cord is normal in morphology and signal intensity with no abnormal postcontras t enhancement. 3. No destructive bony process is seen. Dictated: 05/15/2025 1:13 PM Transcribed: 05/15/2025 1:31 PM Gee [id number] Electronically signed by: Rosales Lyman M.D. 05/15/2025 3:25 PM
[2025-05-15 15:46] LABS: Cryptococcus neoformans/ga PCR Not Detected (NotDetected); Escherichia coli K1 PCR Not Detected (NotDetected); Haemophilius influenzae PCR Not Detected (NotDetected); Herpes Simplex Virus 1 PCR Not Detected (NotDetected); Herpes Simplex Virus 2 PCR Not Detected (NotDetected); Human Herpes Virus 6 PCR Not Detected (NotDetected); Human Parechovirus PCR Not Detected (NotDetected); Listeria monocytogenes PCR Not Detected (NotDetected); Neisseria meningitidis PCR Not Detected (NotDetected); Streptococcus agalactiae PCR Not Detected (NotDetected); Streptococcus pneumoniae PCR Not Detected (NotDetected)
[2025-05-15] MEDS ORDERED: LORazepam Inj 1 MG in SYRINGE 0.5 ML IV STA (18:35)
[2025-05-15] MEDS: LORazepam Inj 2 MG in SYRINGE 1 ML IV STA (19:05)
--- NOTE | 2025-05-15 19:28 | CT Scan Report ---
Clinical History: Altered mental status. Seizure. Technique: Axial computed tomography images were obtained of the brain from the vertex to the skull base without intravenous contrast. Findings: There is no sign of intracranial hemorrhage. There is normal de león-white matter differentiation with no sign of acute or old infarction. No midline shift or other form of herniation is identified. There is no hydrocephalus. No obvious mass lesion is seen on this noncontrast examination. The visualized portions of the orbits and paranasal sinuses appear unremarkable. The mastoid air cells appear clear Impression: Unremarkable noncontrast CT of the brain Electronically signed by Jayjay Borden 05-15-2025 7:27 PM
[2025-05-15] MEDS: methylPREDNISolone 1,000 MG in NSS 250 ML IV ONE (19:35)
[2025-05-15] MEDS: LORazepam Inj 1 MG in SYRINGE 0.5 ML IV STA (20:02)
--- NOTE | 2025-05-15 20:13 | Communication Note ---
Date of Service: May 15, [address] Joes J Mccollum. Patient will receive last dose of 1 g IV Solu-Medrol tomorrow. MRI of the brain and the cervical spine did not show any demyelinating lesions. The results were discussed with the patient this morning. Additional imaging of the thoracic and lumbar spine were also unremarkable. Patient had a lumbar puncture done to rule out infectious etiology versus MS. Preliminary results were unremarkable except opening pressure 26 cm water. She does complain of blurred vision in the left eye associated with retro-orbital pain and numbness. Start Diamox to 250 mg p.o. twice daily with a follow-up with ophthalmology as outpatient for formal visual field testing and long-term management. She should be discharged with steroid taper Infectious disease on board. Testing pending Follow-up with outpatient neurologist since results of MS panel takes 5 to 7 days for further evaluation PT/OT Received [place] text from Radha Ellis PA-C the patient developed jerking of the left upper and lower extremity which comes and goes. Consider Ativan and if jerking continues then transfer to a facility for continuous video EEG mon itoring. Stat head CT was done which was negative for acute intracranial pathology *Disclaimer: This note was generated using CIR[employer] dictation software. Any typographical errors are unintentional and attributed to errors in voice recognition. If there are any areas of the note that do not make sense, please contact me for clarification.
[2025-05-15] MEDS: acetaZOLAMIDE 250 MG TAB PO SCH (20:50)
[2025-05-16 06:30] LABS: Hematocrit (blood only) 35.6 % (37.0-47.0); Hemoglobin 12.0 g/dL (12.0-16.0); Mean Corpuscular Hemoglobin 27.6 pg (25.0-34.0); Mean Corpuscular Volume 81.8 fL (80.0-100.0); Platelet Count 315 K/uL (130-400); RDW Standard Deviation 41.5 fL (36.4-46.3); Red Blood Count 4.35 M/uL (4.20-5.40); White Blood Count 22.12 K/ul (4.8-10.8)
[2025-05-16 06:49] LABS: Anion Gap 7 (3-11); Blood Urea Nitrogen 11 mg/dl (6-23); Calcium 8.7 mg/dl (8.6-10.3); Carbon Dioxide 21 mmol/L (21-32); Chloride 111 mmol/L (98-107); Creatinine Clr Calc Pharmacy 90.7 ml/min; Glucose 175 mg/dl (70-99(Fasting)); Potassium 3.9 mmol/L (3.5-5.1); Sodium 139 mmol/L (136-145)
[2025-05-16 06:52] LABS: Immature Granulocytes # (auto) 0.23 K/uL (0.01-0.20); Immature Granulocytes % (auto) 1.0 %
[2025-05-16 07:44] VITALS: RESP 21
--- NOTE | 2025-05-16 08:28 | Hospitalist Progress Note ---
"Date of Service May 16, 2025 Assessment & Plan (1) Facial paresthesia: (2) Weakness of right lower extremity: (3) Weakness of right upper extremity: (4) Stroke-like symptoms: (5) Anxiety: Plan Pt is a 19 y/o F w/ PMHx significant for travel to [facility] in December where she hiked in the jungle and went swimming. # Subacute polyneuropathy # Left facial, right upper extremity and right lower extremity decrease in sensation | L arm repetitive involuntary movements #Concern for acute MS -Head CT & CTA 05/14: Without acute intracranial findings -Neck CTA 05/14: Unremarkable for acute findings -Brain MRI 05/14: Unremarkable, no abnormal lesions or masses seen within the brain -Cervical Spine MRI 05/14: Unremarkable: no abnormalities of the paraspinous soft tissues seen, no abnormal enhancement or masses -Lumbar and Thoracic Spine MRI 05/15: Without abnormalities, no abnormal enhancement see, no disc herniation or central canal stenosis present -Repeat Head CT 05/15 without any acute or abnormal findings. -Subacute, progressive over about 3 weeks, positive Lhermitte sign -Neurology Consulted: Recommended Lumbar and Thoracic MRI and Lumbar Puncture Additionally recommended pt receive Ativan with new onset of L arm repetitive involuntary movement with concern for seizure-like activity in addition to STAT Head CT Also recommended transfer to tertiary care facility, this was declined by [facility], pt will be re-evaluated in AM -Infectious Disease Consulted: to see patient in AM, agreed with LP testing -Stat MRI brain and cervical spine with and without contrast -1000mg Solumedrol -Seizure and fall precautions -Neuro check Q4H #Anxiety depression - Continue sertraline #Skin lesions - Several months ago, healed -Monitor for recurrence #FEN -Regular diet, NS at 80 cc/h through the night VTE Proph: SCDs Dispo: PCU; closely followed by Neuro Admission and Anticipated Discharge Date Admission Date: May 14, 2025 Review of Systems Review of Systems: All systems reviewed & are unremarkable except as noted in Subjective Physical Exam Physical Exam: General: Pt is a 19 y/o WD/WN F in NAD in bed. VS: reviewed, unremarkable Skin: Warm and dry; no lesions or ulcerations Respiratory: CTA bilat, no adventitious sounds noted. Chest expansion is full and symmetrical Cardio: RRR no murmurs Abdomen: Round, normoactive BS x4, nontender to palpation MSK: FROM of extremities, no deformities Extremities: no edema; Pt with notable R-sided weakness, with a strength of +3 Neuro: A&Ox4, cooperative; Tic-like movement present on L side of body Results & Data Results & Data Vital Signs (Past 12 Hours) Vital Signs Temp Pulse Pulse Resp BP Pulse Ox O2 Del Method 05/16/25 07:44 97.7 F 51 L 21 105/54 L 96 Room Air 05/16/25 01:55 97.7 F 58 L 18 108/55 L 96 Room Air 05/15/25 22:49 97.7 F 58 L 15 105/57 L 95 Room Air 05/15/25 22:03 71 Laboratory Results Reviewed: CBC, BMP, Procal, CRP PG Care Time/CCT Total # of Minutes Spent Total Time Spent with Patient: Total time spent is greater than 50% in coordination of care (as documented) at patient's floor/unit and/or counseling patient: Coding Diagnoses Facial paresthesia R20.2 Weakness of right lower extremity R29.898 Weakness of right upper extremity R29.898 Stroke-like symptoms R29.90 Anxiety F41.9"
--- NOTE | 2025-05-16 09:18 | Infectious Disease Progress Nt ---
Date of Service May 16, 2025 Assessment & Plan (1) Facial paresthesia: (2) Weakness of right lower extremity: (3) Weakness of right upper extremity: Plan Problems: #L sided facial numbness #RUE and RLE numbness, weakness #Elevated opening pressure Micro: 05/15 Lyme screen: negative 05/15 HIV screen: negative 05/15 CSF meningitis/encephalitis panel: neg 05/15 CSF cx: pending. Gram stain negative Abx: None 19 yo F with history of depression/anxiety who presented on 05/14 for evaluation of neurologic symptoms. Pt reports that she has had twitching of the L upper eyelid for the last 3 weeks. L side of her forehead and L side of her face around her eye has felt numb for a few days. Symptoms would come and go but did not fully resolve. In the last week, also noticed numbness in her R arm, and a few days later, slight weakness and decreased sensation in her R leg. She feels as if her extremities are heavy. On presentation, pt was afebrile, VSS. Labs showed unremarkable CBC and CMP, normal ESR, UA negative. CT head, CTA head/neck normal. Neurology was concerned for multiple sclerosis, recommended starting Solumedrol, and lumbar puncture. MRI brain and entire spine unremarkable. On exam, neurology noted diminished sensation to touch in V1, V2 distribution on the L, R hemiparesis 4/5, diminished sensation to touch in R upper and lower extremities. LP performed 05/15, showing opening pressure 26.5, CSF WBC 1, protein 32.1, glucose 106, meningitis/encephalitis PCR panel negative. Developed L sided jerking movements 05/15. Pt denies fevers. She traveled to [facility] and [facility] in late December. In [place], she did water sports, hiked through waterfalls, and rode an elephant. [place]ally[place] She did not see ticks on her, but did get a lot of mosquito bites. She has interacted with pet dogs and a pet sheep. Reports that she had ~3 ulcers on her inner thigh and ~4 ulcers on the back of her leg over the summer, which lasted ~5-6 days and resolved. Denies recent infection such as cold, UTI, etc. Had had alternating diarrhea and constipation since around age 5. Discussion: With normal CSF WBC, infections such as bacterial/viral, syphilis, Crypto seem less likely. HIV and Lyme screens negative. Recommendations: - Infectious etiology is unlikely with normal CSF WBC and protein, afebrile without leukocytosis - Follow-up CSF culture/gram stain, however bacterial/fungal infection unlikely given normal CSF WBC count Will sign off. Admission and Anticipated Discharge Date Admission Date: May 14, 2025 Subjective Subsequent visit was provided via telemedicine using two-way real-time interactive telecommunication between the patient and the telemedicine provider. For the duration of the visit, the provider was performing the assessment from a different facility than the patient. This includesuse of bluetooth stethoscope forauscultationperformed by the telepresenter that the telemedicine provider can hear if described in the physical exam. Bill Distributor contact information: Please call [facility] . (Phone Number For Physician Use Only) After establishing a telemedicine visit, patient was: Patient was verified with two unique identifiers, Patient/authorized rep acknowledged consent and understanding and Gave permission to continue telehealth session Time Spent with Patient: Subsequent => 25 min Continues on Solumedrol, WBC up to 22 Developed some L sided spasms Review of System A complete ROS was performed and is negative except as mentioned in the HPI. Physical Exam Physical Exam: GEN: laying in bed in NAD. HEENT: Normocephalic, atraumatic. RESP: No increased work of breathing EXT: No LE edema. Warm, well-perfused. SKIN: No lesions or rashes on exposed skin. NEURO: Alert and oriented. Answers all questions appropriately. Speech not slurred PSYCH: Normal mood, affect appropriate. Results & Data Vital Signs (Past 12 Hours) Vital Signs Temp Pulse Pulse Resp BP Pulse Ox O2 Del Method 05/16/25 07:44 36.5 C 51 L 21 105/54 L 96 Room Air 05/16/25 01:55 36.5 C 58 L 18 108/55 L 96 Room Air 05/15/25 22:49 36.5 C 58 L 15 105/57 L 95 Room Air 05/15/25 22:03 71 Laboratory Results Short CBC 05/16/25 Range/Units 05:44 WBC 22.12 H D (4.8-10.8) K/ul Hgb 12.0 (12.0-16.0) g/dL Hct 35.6 L (37.0-47.0) % Plt Count 315 (130-400) K/uL BMP 05/15/25 05/16/25 14:42 05:44 Sodium 139 Potassium 3.9 Chloride 111 H Carbon Dioxide 21 BUN 11 Creatinine 0.88 Glucose 137 H 175 H Calcium 8.7
[2025-05-16] MEDS: MAGNESIUM HYDROXIDE SUSP 30 ML UDC PO PRN (09:47)
[2025-05-16 11:02] VITALS: BP 97/57; TEMP 98.1; O2SAT 97
--- NOTE | 2025-05-16 12:07 | Electroencephalogram ---
EEG Procedure Note Date of Service May 16, 2025 Start / End Times Start Time: 11:16 AM End Time: 11:36 AM Referring Physician Glatt History Seizure-like episodes Home Medication List Medication Instructions Recorded Confirmed Type sertraline 50 mg tablet (Zoloft) 50 mg PO DAILY 04/23/24 05/14/25 History Inpatient Medication List Acetaminophen (Acetaminophen 325 Mg Tab) 650 mg PO Q4H PRN PRN Reason: Pain or Fever Stop: 06/13/25 20:20 Last Admin: 05/16/25 02:33 Dose: 650 mg Documented By: Admin: 05/15/25 15:32 Dose: 650 mg Documented By: Admin: 05/15/25 11:01 Dose: 650 mg Documented By: PRANEETH Acetazolamide (Acetazolamide 250 Mg Tab) 250 mg PO BID [facility] Stop: 06/14/25 20:59 Last Admin: 05/16/25 09:43 Dose: 250 mg Documented By: [facility] Admin: 05/15/25 20:50 Dose: 250 mg Documented By: CODY Sodium Chloride (Nss) 1,000 mls @ 80 mls/hr IV .[id number] [facility] Stop: 05/17/25 20:29 Last Admin: 05/16/25 11:39 Dose: 80 mls/hr Documented By: Infusion: 05/16/25 11:12 Dose: Infused Documented By: [facility] Admin: 05/15/25 22:42 Dose: 80 mls/hr Documented By: Infusion: 05/15/25 21:50 Dose: Infused Documented By: Admin: 05/15/25 09:20 Dose: 80 mls/hr Documented By: Infusion: 05/15/25 08:58 Dose: Infused Documented By: Admin: 05/14/25 20:28 Dose: 80 mls/hr Documented By: [facility] Magnesium Hydroxide (Magnesium Hydroxide Susp 30 Ml Udc) 30 ml PO Q12H PRN PRN Reason: Constipation Stop: 06/13/25 20:20 Last Admin: 05/16/25 09:47 Dose: 30 ml Documented By: RADHA Pantoprazole Sodium (Pantoprazole 40 Mg Tab) 40 mg PO BID CATHY Stop: 06/14/25 20:59 Last Admin: 05/16/25 09:43 Dose: 40 mg Documented By: [facility] Admin: 05/15/25 20:50 Dose: 40 mg Documented By: GLORY Sertraline HCl (Sertraline Hcl 50 Mg Tablet) 50 mg PO 1700 CATHY Stop: 06/13/25 21:14 Last Admin: 05/15/25 17:05 Dose: 50 mg Documented By: Admin: 05/14/25 22:15 Dose: 50 mg Documented By: THONG Discontinued Medications Aspirin (Aspirin Chew 324 Mg) 324 mg PO NOW STA Stop: 05/14/25 17:47 Last Admin: 05/14/25 18:05 Dose: 324 mg Documented By: SENA Famotidine (Famotidine 10 Mg Tablet) 10 mg PO NOW ONE Stop: 05/15/25 14:06 Last Admin: 05/15/25 15:05 Dose: 10 mg Documented By: PRANEETH Gadobutrol (Gadobutrol 65ml Vial) 5.6 ml IV ONCE ONE Stop: 05/14/25 19:22 Last Admin: 05/14/25 19:24 Dose: 5.6 ml Documented By: ELÍAS Gadobutrol (Gadobutrol 65ml Vial) 5.6 ml IV ONCE ONE Stop: 05/15/25 12:55 Last Admin: 05/15/25 12:54 Dose: 5.6 ml Documented By: FARRAH Methylprednisolone 1,000 mg/ (Sodium Chloride) 266 mls @ 266 mls/hr IV NOW ONE Stop: 05/14/25 18:59 Last Infusion: 05/14/25 21:04 Dose: Infused Documented By: Admin: 05/14/25 19:42 Dose: 266 mls/hr Documented By: JANEEN Methylprednisolone 1,000 mg/ (Sodium Chloride) 266 mls @ 266 mls/hr IV NOW ONE Stop: 05/15/25 19:29 Last Infusion: 05/15/25 20:35 Dose: Infused Documented By: Admin: 05/15/25 19:35 Dose: 266 mls/hr Documented By: GLORY Lorazepam 2 mg/ Syringe 2 mls @ 2 mls/min IV ONE STA; Protocol Stop: 05/15/25 18:45 Last Admin: 05/15/25 19:05 Dose: 1 mls/min Documented By: PRANEETH Lorazepam 1 mg/ Syringe 1 mls @ 2 mls/min IV NOW STA Stop: 05/15/25 19:38 Last Admin: 05/15/25 20:02 Dose: 2 mls/min Documented By: GLORY Ioversol (Optiray 320 125ml) 115 ml IV ONCE ONE Stop: 05/14/25 15:25 Last Admin: 05/14/25 15:24 Dose: 115 ml Documented By: RAMYA Description This is a 21 electrode EEG with a single channel dedicated to limited EKG. The electrodes were placed in accordance with the International 10-20 system. There is a posterior dominant rhythm of 10 Hz which is symmetrically distributed and attenuates with eye opening. There is a normal anterior to posterior organization. Photic stimulation is unremarkable. There is fairly continuous left parietal focal theta slowing, associated sharps, and an intermittent associated spike wave abnormality Interpretation This EEG is concerning for a focal seizure activity originating from the left parietal region. Clinical Correlation Results discussed with hospitalist provider [facility] EEG Procedure Codes Indication for Procedure (1) Seizures: Neurology Neurology: 51710 EEG include record awake & drowsy
--- NOTE | 2025-05-16 15:05 | Discharge Summary ---
Discharge Summary Date of Service May 16, 2025 Principal Dx & Hospital Course #1 = Principal Diagnosis (1) Facial paresthesia: (2) Weakness of right lower extremity: (3) Weakness of right upper extremity: (4) Stroke-like symptoms: (5) Anxiety: Plan Pt is a 19 y/o F w/ no significant PMHx who presented with subacute polyneuropathy, RUE and RLE extremity weakness, and Lt facial weakness. Pt states that Lt eye weakness began 3wks FIRST RESPONDER and continued to progress. About 1 wk FIRST RESPONDER pt began to develop R sided weakness in her arm which progressed to her leg. While patient was admitted to the hospital, she began to develop L arm repetitive movements. She was provided with 2 total g of Ativan, 1gm with a waiting period of 15 mins and then another gm with moderate relief of symptoms. # Subacute polyneuropathy # Left facial, right upper extremity and right lower extremity decrease in sensation # Seizure-like activity, L arm repetitive involuntary movements #Concern for acute MS -Head CT & CTA 05/14: Without acute intracranial findings -Neck CTA 05/14: Unremarkable for acute findings -Brain MRI 05/14: Unremarkable, no abnormal lesions or masses seen within the brain -Cervical Spine MRI 05/14: Unremarkable: no abnormalities of the paraspinous soft tissues seen, no abnormal enhancement or masses -Lumbar and Thoracic Spine MRI 05/15: Without abnormalities, no abnormal enhancement see, no disc herniation or central canal stenosis present -Repeat Head CT 05/15 without any acute or abnormal findings. -Spot EEG, not sleep deprived 05/15z: Posterior dominant rhythm of 10 Hz which is symmetrically distributed and attenuated with eye opening with fairly continuous left parietal focal theta slowing, associated sharps, and intermittent associated spike wave abnormality. -Neurology Consulted: recommending transfer following results of EEG for more in-depth monitoring -Infectious Disease Consulted: does not feel that this is related to infectious cause -1000mg Solumedrol d/t concern for MS, last dose evening 05/15 -Seizure and fall precautions -Neuro check Q4H #Anxiety depression - Continue sertraline #Skin lesions - Several months ago, healed -Monitor for recurrence #FEN -Regular diet, NS at 80 cc/h through the night VTE Proph: SCDs Dispo: Discharge, Transfer to [facility] Admission HPI Per Admitting Provider 19-year-old female generally healthy presents to the emergency department after a 3-1-week history of progressive neurologic symptoms. Patient states she has no prior history of similar. Generally healthy takes sertraline for depression/anxiety. About 3 weeks ago noticed some twitching of her left eyelid which has been persistent and almost now constant. Shortly after the twitching started she had some numbness that she noticed around the left side of her forehead and the left side of her face surrounding the eye. Symptoms would come and go but never completely resolved. Over the last week she first noticed some numbness and decreased sensation throughout the right arm. A few days later she noticed some slight weakness and decreased sensation of the right leg. She was somewhat concerned the symptoms are worsening. She went to class today she felt very unsteady one of her friends thought she looked as though she was going to pass out so she advised her to come to urgent care. Urgent care referred her to the emergency department for evaluation. Initial evaluation in the emergency department showed largely normal electrolytes. Normal CT imaging. Initial stroke workup was negative. She was referred for admission for ongoing evaluation, neurology consultation and further treatment and evaluation. Discharge Exam General: Pt is a 19 y/o WD/WN F in NAD in bed. VS: reviewed, unremarkable Skin: Warm and dry; no lesions or ulcerations Respiratory: CTA bilat, no adventitious sounds noted. Chest expansion is full and symmetrical Cardio: RRR no murmurs Abdomen: Round, normoactive BS x4, nontender to palpation MSK: FROM of extremities, no deformities Extremities: no edema; Pt with notable R-sided weakness, with a strength of +3 Neuro: A&Ox4, cooperative; Tic-like movement present on L side of body which have now moved to the RUE as well Discharge Plan Discharge Items Patient Disposition: Transfer Acute Care Hospital Reason For Visit: STROKE LIKE SYMPTOMS Discharge Diagnosis: Seizure Acitivity Condition on Discharge: Fair Activity: Resume your previous activity Non-emergency contact: Primary Care Provider and Neurologist Call non-emergency contact if: you have any medication questions Follow-up/Referrals: PCP,NO [Primary Care Provider] - Diet: Regular Addtl Attending Provider Instructions: Pt is a 19 y/o F w/ no significant PMHx who presented with subacute polyneuropathy, RUE and RLE extremity weakness, and Lt facial weakness. Pt states that Lt eye weakness began 3wks FIRST RESPONDER and continued to progress. About 1 wk FIRST RESPONDER pt began to develop R sided weakness in her arm which progressed to her leg. While patient was admitted to the hospital, she began to develop L arm repetitive movements. She was provided with 2 total g of Ativan, 1gm with a waiting period of 15 mins and then another gm with moderate relief of symptoms. # Subacute polyneuropathy # Left facial, right upper extremity and right lower extremity decrease in sensation # Seizure-like activity, L arm repetitive involuntary movements #Concern for acute MS -Head CT & CTA 05/14: Without acute intracranial findings -Neck CTA 05/14: Unremarkable for acute findings -Brain MRI 05/14: Unremarkable, no abnormal lesions or masses seen within the brain -Cervical Spine MRI 05/14: Unremarkable: no abnormalities of the paraspinous soft tissues seen, no abnormal enhancement or masses -Lumbar and Thoracic Spine MRI 05/15: Without abnormalities, no abnormal enhancement see, no disc herniation or central canal stenosis present -Repeat Head CT 05/15 without any acute or abnormal findings. -Spot EEG, not sleep deprived 05/15z: Posterior dominant rhythm of 10 Hz which is symmetrically distributed and attenuated with eye opening with fairly continuous left parietal focal theta slowing, associated sharps, and intermittent associated spike wave abnormality. -Neurology Consulted: recommending transfer following results of EEG for more in-depth monitoring -Infectious Disease Consulted: does not feel that this is related to infectious cause -1000mg Solumedrol d/t concern for MS, last dose evening 05/15 -Seizure and fall precautions -Neuro check Q4H #Anxiety depression - Continue sertraline #Skin lesions - Several months ago, healed -Monitor for recurrence #FEN -Regular diet, NS at 80 cc/h through the night VTE Proph: SCDs Dispo: Discharge, Transfer to [facility] Pending Studies at Discharge: No Stand-Alone Forms: My [facility] [employer], Work/School Release Skilled Items Patient informed of condition?: Yes DNR: No Discharge Level of Care: Other Communicable Disease: No Discharge Prognosis: Stable Lines: Peripheral IV Urinary Catheter: No Medications and DC Order Prescriptions: Continued sertraline [Zoloft] 50 mg tablet 50 mg PO DAILY Discharge Orders: Discharge Order (Routine); Ordered 05/16/25 Ordered By: Radha Ellis Admission Data Admit Date/Time: 05/14/25 19:35 Attending Provider: Jose J Mccollum Admit Provider: Jose J Mccollum Primary Care Provider: PCP,NO Other Providers: Bob Jefferson; Barbara Orozco; Dewey Sierra; Marielena Orta; Charli Bassett; Waleska Peterson; Aristeo Hernandez; Hector Pryor; Griffin Cool; Luis Gamino; Lele Arredondo; Marshal Zhu; Samantha Harris; Hipolito Hernandez V; Wm Pinon I; Mary Mitchell; Armida Hercules; Yessenia Antonio; Judi Eli; Loraine Calderón; Jose J Mccollum; Zulma Ascencio; Linda Moscoso; Melissa Aguiar; Renzo Boston; Teodora Garrison; Vickie Ruiz Hospital Stay Data Consultations 05/14/25 16:32 ED Decision to Admit Stat 05/14/25 17:38 Consult Neurology Stat 05/15/25 11:42 Consult Infectious Diseases Stat 05/16/25 14:34 Burn CD for patient Stat Diagnostic Imagining Performed 05/14/25 14:12 CT angio head w con Stat CT angio neck with con Stat CT head/brain wo con Stat 05/14/25 17:51 MRI Brain [MR brain wo/w con] Stat MRI Cervical [MR cervical spine wo/w con] Stat 05/15/25 11:42 MRI Lumbar Spine [MR lumbar spine wo/w con] Urgent MRI Thoracic [MR thoracic spine wo/w con] Urgent 05/15/25 12:06 IR lumbar puncture diagnostic Routine 05/15/25 18:39 CT head/brain wo con Stat Discharge Instructions Given to Patient (Per Discharging Provider) Pt is a 19 y/o F w/ no significant PMHx who presented with subacute polyneuropathy, RUE and RLE extremity weakness, and Lt facial weakness. Pt states that Lt eye weakness began 3wks FIRST RESPONDER and continued to progress. About 1 wk FIRST RESPONDER pt began to develop R sided weakness in her arm which progressed to her leg. While patient was admitted to the hospital, she began to develop L arm repetitive movements. She was provided with 2 total g of Ativan, 1gm with a waiting period of 15 mins and then another gm with moderate relief of symptoms. # Subacute polyneuropathy # Left facial, right upper extremity and right lower extremity decrease in sens ation # Seizure-like activity, L arm repetitive involuntary movements #Concern for acute MS -Head CT & CTA 05/14: Without acute intracranial findings -Neck CTA 05/14: Unremarkable for acute findings -Brain MRI 05/14: Unremarkable, no abnormal lesions or masses seen within the brain -Cervical Spine MRI 05/14: Unremarkable: no abnormalities of the paraspinous soft tissues seen, no abnormal enhancement or masses -Lumbar and Thoracic Spine MRI 05/15: Without abnormalities, no abnormal enhancement see, no disc herniation or central canal stenosis present -Repeat Head CT 05/15 without any acute or abnormal findings. -Spot EEG, not sleep deprived 05/15z: Posterior dominant rhythm of 10 Hz which is symmetrically distributed and attenuated with eye opening with fairly continuous left parietal focal theta slowing, associated sharps, and intermittent associated spike wave abnormality. -Neurology Consulted: recommending transfer following results of EEG for more in-depth monitoring -Infectious Disease Consulted: does not feel that this is related to infectious cause -1000mg Solumedrol d/t concern for MS, last dose evening 05/15 -Seizure and fall precautions -Neuro check Q4H #Anxiety depression - Continue sertraline #Skin lesions - Several months ago, healed -Monitor for recurrence #FEN -Regular diet, NS at 80 cc/h through the night VTE Proph: SCDs Dispo: Discharge, Transfer to [facility] Total Time Total Time Spent Total Time Spent (In Minutes): Time spent day of discharge 95 minutes including direct patient care, medication reconciliation, documentation, review of labs and images, and coordination of care. Coding Level of Care Code 69593 INP/OBS DISCH >30 MIN Diagnoses Facial paresthesia R20.2 Weakness of right lower extremity R29.898 Weakness of right upper extremity R29.898 Stroke-like symptoms R29.90 Anxiety F41.9
[2025-05-16 17:28] VITALS: PULSE 65
--- NOTE | 2025-05-19 07:18 | Electrocardiogram Report ---
Test Reason : Blood Pressure : */* mmHG Vent. Rate : 52 BPM Atrial Rate : 52 BPM P-R Int : 118 ms QRS Dur : 82 ms QT Int : 442 ms P-R-T Axes : -12 65 41 degrees QTcB Int : 411 ms Sinus bradycardia with sinus arrhythmia Otherwise normal ECG No previous ECGs available Confirmed by Sanjiv Monet ([id number]) on 05/19/2025 7:17:42 AM Referred By: REFERRED SELF Confirmed By: Sanjiv Monet
== END 2025-05-16 19:30 | disposition short-term general hospital (02) | DRG 60 ==
LOC: SUATTDRO → ED 13:10 → 2S 19:35